=== PATIENT | female | born 1970 | race Two or more races ===

== ENCOUNTER → 2024-05-18 | Outpatient (CLI) | payer MEDICAID ==
[~2024-05-18] VITALS: Ht 152.4 cm; Wt 51.7 kg
[2024-05-18] MEDS: REGADENOSON 0.4 MG/5 ML SYRG IV ONE ×2 (10:41)
== END | disposition home or self-care (01) ==
LOC: XYW 07:35
PROVIDERS: ATTEND Internal Medicine
DX: I99.8 Other disorder of circulatory system (principal); I11.9 Hypertensive heart disease without heart failure; R06.02 Shortness of breath; M06.9 Rheumatoid arthritis, unspecified
CPT/HCPCS: 78452; 93017; A9500; J2785

== ENCOUNTER 2024-12-03 08:49 | Emergency (ER) | payer MEDICAID, OTHER ==
[~2024-12-03] VITALS: Ht 162.6 cm; Wt 58.1 kg
--- NOTE | 2024-12-03 08:56 | ECG ---
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
[2024-12-03 09:10] VITALS: PULSE 71; RESP 18; TEMP 97.9; O2SAT 98
[2024-12-03] MEDS: SODIUM CHLORIDE 0.9% 1,000 ML IV ONE (09:27)
--- NOTE | 2024-12-03 09:32 | ED.PDOC ---
SOB-HPI HPI Comments 54 y/o F, with PMHx of HTN presents to the ED for CC of shortness of breath. Patient states, she has been experiencing symptoms of shortness of breath [id number]. Upon arrival to the ED, patient is hypotensive with a blood pressure reading of 90/54mmHg. Patient denies cough, congestion, fever, chills, or body- aches. No other symptoms or modifying factors present at this time. 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 Family History Family History: Unknown Social History Smoker: Other (VAPE) Alcohol: Denies ETOH Use Drugs: Denies Drug Use Lives In: Home Constitutional: denies: chills, diaphoresis, fatigue, fever, malaise, sweats, weakness, others EENTM: denies: blurred vision, double vision, ear bleeding, ear discharge, ear drainage, ear pain, ear ringing, eye pain, eye redness, hearing loss, mouth pain, mouth swelling, nasal discharge, nose bleeding, nose congestion, nose pain, photophobia, tearing, throat pain, throat swelling, voice changes, others Respiratory: reports: shortness of breath; denies: cough, hemoptysis, orthopnea, SOB at rest, SOB with excertion, stridor, wheezing, others Cardiovascular: denies: chest pain, dizzy spells, diaphoresis, Dyspnea on exertion, edema, irregular heart beat, left arm pain, lightheadedness, palpitations, PND, syncope, others Gastrointestinal: denies: abdomen distended, abdominal pain, blood streaked bowels, constipated, diarrhea, dysphagia, difficulty swallowing, hematemesis, melena, nausea, poor appetite, poor fluid intake, rectal bleeding, rectal pain, vomiting, others Genitourinary: denies: abnormal vagina bleeding, burning, dyspareunia, dysuria, flank pain, frequency, hematuria, incontinence, pain, , vagina discharge, urgency, others Neurological: denies: dizziness, fainting, headache, left sided numbness, left sided weakness, numbness, paresthesia, pre-existing deficit, right sided numbness, right sided weakness, seizure, speech problems, tingling, tremors, weakness, others Musculoskeletal: denies: back pain, gout, joint pain, joint swelling, muscle pain, muscle stiffness, neck pain, others Integumetry: denies: bruises, change in color, change in hair/nails, dryness, laceration, lesions, lumps, rash, wounds, others Allergic/Immunocompromised: denies: Difficulty Healing, Frequent Infections, Hives, Itching, others Hematologic/Lymphatic: denies: anemia, blood clots, easy bleeding, easy bruising, swollen glands, others Endocrine: denies: excessive hunger, excessive sweating, excessive thirst, excessive urination, flushing, intolerance to cold, intolerance to heat, unexplained weight gain, unexplained weight loss, others Psychiatric: denies: anxiety, bipolar disorder, depression, hopeless, panic disorder, schizophrenia, sleepless, suicidal, others All Other Systems: Reviewed and Negative Physical Exam General Appearance: Moderate Distress HEENT: Normal ENT Inspection, Pharynx Normal, TMs Normal Neck: Full Range of Motion, Non-Tender, Normal, Normal Inspection Respiratory: Other (Coarse breath sounds) Cardiovascular: No Edema, No JVD, No Murmur, No Gallop, Normal Peripheral Pulses, Regular Rate/Rhythm Breast Exam: Deferred Gastrointestinal: No Organomegaly, Non Tender, No Pulsatile Mass, Normal Bowel Sounds, Soft Genitalia: Deferred Pelvic: Deferred Rectal: Deferred Extremities: No calf tenderness, Normal capillary refill, Normal inspection, Normal range of motion, Non-tender, No pedal edema Musculoskeletal : Apperance: Normal 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 Was a procedure done?: No Differential Dx Differential Diagnosis: Asthma, Bronchitis, Hypertension, Sinusitis, Pharyngitis, URI X-Ray, Labs, Meds, VS Vital Signs Date Time Temp Pulse Resp B/P (MAP) Pulse Ox O2 Delivery O2 Flow Rate FiO2 12/03/24 10:21 60 16 104/74 (84) 96 12/03/24 09:12 16 96 Room Air* 0 21 12/03/24 09:10 71 18 98 Room Air* 0 21 12/03/24 09:10 97.9 71 18 89/62 (71) 98 97.9 12/03/24 09:09 97.8 71 16 90/54 (66) 96 97.8 12/03/24 08:55 65 Lab Test 12/03/24 09:48 12/03/24 09:40 12/03/24 08:58 Range/Units Troponin I High Sensitivity 19 22 </=34 ng/L Urine Color Colorless Yellow Urine Clarity Clear Clear Urine pH 6.0 5.0-9.0 Urine Specific [place] 1.006 1.001-1.035 Urine Protein Negative Negative Urine Ketones Negative Negative Urine Blood 2+ H Negative /uL Urine Nitrite Negative Negative Urine Bilirubin Negative Negative Urine Urobilinogen Normal Negative mg/dL Urine Leukocyte Esterase 3+ Negative /uL Urine RBC 20 0 - 4 /hpf Urine Microscopic WBC 46 H 0-5 /HPF Urine Squamous Epithelial Cells Few <5 /hpf Urine Bacteria Few H None Seen /hpf Urine Glucose Normal Normal mg/dL White Blood Count 7.4 4.4-10.8 10^3/uL Red Blood Count 4.58 4.0-5.20 10^6/uL Hemoglobin 14.7 12.2-16.2 g/dL Hematocrit 43.2 36.0-46.0 % Mean Corpuscular Volume 94.4 80.0-100.0 fL Mean Corpuscular Hemoglobin 32.0 28.0-32.0 pg Mean Corpuscular Hemoglobin Concent 33.9 32.0-36.0 g/dL Red Cell Distribution Width 14.5 H 11.8-14.3 % Platelet Count 163 140-450 10^3/uL Mean Platelet Volume 8.0 6.9-10.8 fL Neutrophils (%) (Auto) 67.7 37.0-80.0 % Lymphocytes (%) (Auto) 20.3 10.0-50.0 % Monocytes (%) (Auto) 8.9 0.0-12.0 % Eosinophils (%) (Auto) 2.3 0.0-7.0 % Basophils (%) (Auto) 0.8 0.0-2.0 % Neutrophils # (Auto) 5.0 1.6-8.6 10 ^3/uL Lymphocytes # (Auto) 1.5 0.4-5.4 10 ^3/uL Monocytes # (Auto) 0.7 0-1.3 10 ^3/uL Eosinophils # (Auto) 0.2 0-0.8 10 ^3/uL Basophils # (Auto) 0.1 0-0.2 10 ^3/uL Nucleated Red Blood Cells 0.0 % Sodium Level 143 136-145 mmol/L Potassium Level 3.2 L 3.5-5.1 mmol/L Chloride Level 109 H 98-107 mmol/L Carbon Dioxide Level 23 20-31 mmol/L Anion Gap 11 5-15 Blood Urea Nitrogen 31 H 9-23 mg/dL Creatinine 1.28 H 0.550-1.02 mg/dL Glomerular Filtration Rate Calc 49 >90 mL/min BUN/Creatinine Ratio 24.2 H 10.0-20.0 Serum Glucose 122 H 74-106 mg/dL Calcium Level 9.2 8.7-10.4 mg/dL B-Type Natriuretic Peptide 1220.60 0-100 pg/mL Current Medications Medications (Trade) Dose Ordered Sig/Hunter Route Start Time Stop Time Status Last Admin Sodium Chloride 1,000 ml @ 1,000 mls/hr Q1H ONCE IV 12/03/24 09:30 12/03/24 10:29 DC 12/03/24 09:27 [place] [id number] Ph: [phone] DIAGNOSTIC IMAGING Diagnostic Imaging Report : [id number] Signed PATIENT: JAIR PARR ACCT: [id number] UNIT: [id number] : 1970 LOC: ER ROOM / BED: / AGE / SEX: 54 / F ADM STATUS: REG ER SERVICE 4 ORDERING PHYSICIAN: WILLIE RYDER MD PROCEDURE(s): CXRP - CHEST PORTABLE REASON: sob ORDER NUMBER(s): [id number], ACCESSION NUMBER(s): [id number] CHEST RADIOGRAPH Indication: sob Technique: Single frontal view of the chest was obtained COMPARISON: None FINDINGS: Lines and Tubes: None Lungs: Clear Pleura: No effusion. No pneumothorax. Cardiomediastinal contours: Unremarkable Bones: Unremarkable IMPRESSION: No acute disease. ATED BY: JOEL EDMONDS MD DICTATED DATE/TIME: 12/03/24 1018 SIGNED BY: JOEL EDMONDS MD SIGNED DATE/TIME: 12/03/24 1018 CC: Patient alert. Came in for shortness a breath. She vapes. Rheumatoid arthritis. Does not take care of herself. COPD. Wanted the patient to be admitted. Left without telling anyone. Time of 1ST Reevaluation: 09:40 Reevaluation 1ST: Unchanged Patient Education/Counseling: Diagnosis, Treatment Family Education/Counseling: No Family Present Departure 1 Departure Time of Disposition: 17:45 Impression: Primary Impression: Acute exacerbation of CHF (congestive heart failure) Qualified Codes: I50.43 - Acute on chronic combined systolic (congestive) and diastolic (congestive) heart failure Additional Impression: COPD exacerbation Disposition: ADMITTED INPATIENT Admit to: Med Surg Condition: Guarded Critical Care Note Critical Care Time?: Yes (90 min-critical care time only) Critical care comment: Continue to monitor Stability Stability form required: No Heart Score Heart Score: Heart Score Response (Comments) Value History N/A 0 EKG N/A 0 Age N/A 0 Risk Factors N/A 0 Troponin N/A 0 Total 0 I personally scribed for WILLIE RYDER MD ([email or web address]) on 12/03/24 at 09:32. Electronically submitted by Pretty Smith ([email or web address]). I personally scribed for WILLIE RYDER MD ([email or web address]) on 12/03/24 at 10:36. Electronically submitted by Pretty Smith ([email or web address]). WILLIE RYDER MD December 03, 2024 09:32
[2024-12-03 09:38] LABS: Basophils # (auto) 0.1 10 ^3/uL (0-0.2); Basophils % (auto) 0.8 % (0.0-2.0); Eosinophils # (auto) 0.2 10 ^3/uL (0-0.8); Eosinophils % (auto) 2.3 % (0.0-7.0); Hematocrit 43.2 % (36.0-46.0); Hemoglobin 14.7 g/dL (12.2-16.2); Lymphocytes # (auto) 1.5 10 ^3/uL (0.4-5.4); Lymphocytes % (auto) 20.3 % (10.0-50.0); Mean Corpuscular Hgb Conc. 33.9 g/dL (32.0-36.0); Mean Corpuscular Volume 94.4 fL (80.0-100.0); Monocytes # (auto) 0.7 10 ^3/uL (0-1.3); Monocytes % (auto) 8.9 % (0.0-12.0); Neutrophils % (auto) 67.7 % (37.0-80.0); Platelet Count (auto) 163 10^3/uL (140-450); Red Blood Cells 4.58 10^6/uL (4.0-5.20); Red Cell Distribution Width 14.5 % (11.8-14.3); White Blood Cell 7.4 10^3/uL (4.4-10.8)
[2024-12-03 09:48] LABS: Sodium 143 mmol/L (136-145)
[2024-12-03 09:49] LABS: Anion Gap 11 (5-15); Carbon Dioxide 23 mmol/L (20-31); Chloride 109 mmol/L (98-107); Potassium 3.2 mmol/L (3.5-5.1)
[2024-12-03 09:50] LABS: Calcium 9.2 mg/dL (8.7-10.4)
[2024-12-03 09:54] LABS: BUN/Creatinine Ratio 24.2 (10.0-20.0)
[2024-12-03 09:57] LABS: Blood Urea Nitrogen 31 mg/dL (9-23); Glucose 122 mg/dL (74-106)
[2024-12-03 09:58] LABS: Urine Bacteria FEW /hpf (None Seen); Urine Blood 2+ /uL (Negative); Urine Clarity Clear (Clear); Urine Color Colorless (Yellow); Urine Protein, UAD Negative (Negative); Urine Specific Gravity 1.006 (1.001-1.035); Urine Squamous Epithelial Cell FEW /hpf (<5); Urine Urobilinogen Normal (Negative); Urine WBC 46 /HPF (0-5)
--- NOTE | 2024-12-03 10:20 | DVH ---
CHEST RADIOGRAPH Indication: sob Technique: Single frontal view of the chest was obtained COMPARISON: None FINDINGS: Lines and Tubes: None Lungs: Clear Pleura: No effusion. No pneumothorax. Cardiomediastinal contours: Unremarkable Bones: Unremarkable IMPRESSION: No acute disease.
[2024-12-03 10:21] VITALS: BP 104/74; PULSE 60; RESP 16; O2SAT 96
--- NOTE | 2024-12-03 16:43 | ECG ---
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
[2024-12-04] MEDS ORDERED: LOSA-533 PO (00:37)
[2024-12-04] MEDS ORDERED: ASPI-543 PO (00:37)
[2024-12-04] MEDS ORDERED: FURO40TA4 PO (00:37)
[2024-12-04] MEDS ORDERED: CARV6.2551 PO (00:37)
== END 2024-12-03 10:56 | disposition left against medical advice (07) ==
LOC: ER 08:49
DX: I11.0 Hypertensive heart disease with heart failure (principal); I50.9 Heart failure, unspecified; J44.1 Chronic obstructive pulmonary disease with (acute) exacerbation; F17.290 Nicotine dependence, other tobacco product, uncomplicated; Z98.890 Other specified postprocedural states
CPT/HCPCS: 36415; 71045; 80048; 81001; 83880; 84484; 85025; 93005; 96360; 99291; 99292; J7030

== ENCOUNTER 2024-12-03 16:34 | Inpatient (IN) | payer MEDICAID ==
[~2024-12-03] VITALS: Ht 152.4 cm; Wt 58.2 kg
--- NOTE | 2024-12-03 16:53 | ED.PDOC ---
SOB-HPI HPI Comments 54 y/o F, presents to the ED for CC of shortness of breath. Patient states, she has been experiencing shortness of breath xmonths. Patient was seen at [facility] ED earlier today (12/03/24); left AMA. Patient denies any new symptoms since, last being seen. 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 [employer] Hx Family History Family History: Unknown Social History Smoker: Other (vapes) Alcohol: Denies ETOH Use Drugs: Denies Drug Use Lives In: Home Constitutional: denies: chills, diaphoresis, fatigue, fever, malaise, sweats, weakness, others EENTM: denies: blurred vision, double vision, ear bleeding, ear discharge, ear drainage, ear pain, ear ringing, eye pain, eye redness, hearing loss, mouth pain, mouth swelling, nasal discharge, nose bleeding, nose congestion, nose pain, photophobia, tearing, throat pain, throat swelling, voice changes, others Respiratory: reports: shortness of breath; denies: cough, hemoptysis, orthopnea, SOB at rest, SOB with excertion, stridor, wheezing, others Cardiovascular: denies: chest pain, dizzy spells, diaphoresis, Dyspnea on exertion, edema, irregular heart beat, left arm pain, lightheadedness, palpitations, PND, syncope, others Gastrointestinal: denies: abdomen distended, abdominal pain, blood streaked bowels, constipated, diarrhea, dysphagia, difficulty swallowing, hematemesis, melena, nausea, poor appetite, poor fluid intake, rectal bleeding, rectal pain, vomiting, others Genitourinary: denies: abnormal vagina bleeding, burning, dyspareunia, dysuria, flank pain, frequency, hematuria, incontinence, pain, , vagina discharge, urgency, others Neurological: denies: dizziness, fainting, headache, left sided numbness, left sided weakness, numbness, paresthesia, pre-existing deficit, right sided numbness, right sided weakness, seizure, speech problems, tingling, tremors, weakness, others Musculoskeletal: denies: back pain, gout, joint pain, joint swelling, muscle pain, muscle stiffness, neck pain, others Integumetry: denies: bruises, change in color, change in hair/nails, dryness, laceration, lesions, lumps, rash, wounds, others Allergic/Immunocompromised: denies: Difficulty Healing, Frequent Infections, Hives, Itching, others Hematologic/Lymphatic: denies: anemia, blood clots, easy bleeding, easy bruising, swollen glands, others Endocrine: denies: excessive hunger, excessive sweating, excessive thirst, excessive urination, flushing, intolerance to cold, intolerance to heat, unexplained weight gain, unexplained weight loss, others Psychiatric: denies: anxiety, bipolar disorder, depression, hopeless, panic disorder, schizophrenia, sleepless, suicidal, others All Other Systems: Reviewed and Negative Physical Exam General Appearance: Moderate Distress (Patient appear to be in [id number] distress due to shortness a breath and general illness concerns. Patient ap pears to be in poor overall health and older than her chronology.), Normal HEENT: Normal ENT Inspection, Pharynx Normal, TMs Normal Neck: Full Range of Motion, Non-Tender, Normal, Normal Inspection Respiratory: Chest Non-Tender, No Accessory Muscle Use, No Respiratory Distress, Other (Very mild wheeze appreciated right middle lobe. No accessory muscle use. No signs of respiratory distress.) Cardiovascular: No Edema, No JVD, No Murmur, No Gallop, Normal Peripheral Pulses, Regular Rate/Rhythm Breast Exam: Deferred Gastrointestinal: No Organomegaly, Non Tender, No Pulsatile Mass, Normal Bowel Sounds, Soft Genitalia: Deferred Pelvic: Deferred Rectal: Deferred Extremities: No calf tenderness, Normal capillary refill, Normal inspection, Normal range of motion, Non-tender, No pedal edema Neurologic: Alert, No Motor Deficits, Normal Affect, Normal Mood, No Sensory Deficits Cerebellar Function: Normal Reflexes: Normal Skin: Dry, Normal Color, Warm Lymphatic: No Adenopathy Was a procedure done? Was a procedure done?: No Differential Dx Differential Diagnosis: Bronchitis, CHF, Pneumonia, Sinusitis, Pharyngitis, URI X-Ray, Labs, Meds, VS Vital Signs Date Time Temp Pulse Resp B/P (MAP) Pulse Ox O2 Delivery O2 Flow Rate FiO2 12/03/24 16:40 98.4 79 16 130/85 (100) 97 98.4 Lab Test 12/03/24 16:54 Range/Units Troponin I High Sensitivity Pending X-Ray, Labs, Meds, VS Comment All studies performed the ED were evaluated by me personally. Earlier serum studies confirmed an acute CHF exacerbation with a BNP above 1200, acute on chronic renal injury, hypokalemia and a urinary tract infection. EKG revealed a sinus rhythm with a rate of 73. IL interval 197 and QT interval 408. LAE and RVH was appreciated. Patient's chest x-ray was unremarkable for any acute disease. Patient is suffering from a significant CHF exacerbation and needs evaluation of kidney function. Patient will be admitted for both. Discussed the need for admission with the patient and she stated that she wants to be admitted now. Time of 1ST Reevaluation: 17:12 Reevaluation 1ST: Unchanged Consultation: PCP Patient Education/Counseling: Diagnosis, Treatment Family Education/Counseling: Diagnosis, Treatment, No Family Present Departure 1 Departure Time of Disposition: 17:12 Impression: Primary Impression: Acute exacerbation of CHF (congestive heart failure) Qualified Codes: I50.43 - Acute on chronic combined systolic (congestive) and diastolic (congestive) heart failure Additional Impressions: [id number] kidney injury Qualified Codes: N17.9 - Acute kidney failure, unspecified; N18.9 - Chronic kidney disease, unspecified Hypokalemia Urinary tract infection Qualified Codes: N39.0 - Urinary tract infection, site not specified Disposition: 09 ADMITTED INPATIENT Condition: Stable Discharged With: Self Critical Care Note Critical Care Time?: No Stability Stability form required: No Heart Score Heart Score: Heart Score Response (Comments) Value History Slightly Suspicious 0 EKG Repolarization Disturb 1 Age 45-64 1 Risk Factors 1 or 2 risk factors 1 Troponin Normal limit 0 Total 3 I personally scribed for SEVERIANO ESCALONA PAC ([email or web address]) on 12/03/24 at 16:53. Electronically submitted by Pretty Smith ([email or web address]). I personally scribed for SEVERIANO ESCALONA PAC ([email or web address]) on 5/9/25 at 17:00. Electronically submitted by Pretty Smith ([email or web address]). SEVERIANO ESCALONA [facility] December 03, 2024 16:53 WILLIE RYDER MD December 03, 2024 17:27
[2024-12-03] MEDS ORDERED: MORPHINE SULFATE INJ 2 MG/ml SYRG IV PRN (21:00)
[2024-12-03] MEDS ORDERED: NITROGLYCERIN 0.4 MG SL TAB SL PRN (21:00)
[2024-12-03] MEDS ORDERED: ACETAMINOPHEN 325 MG TAB PO PRN (21:00)
[2024-12-03] MEDS: POTASSIUM EFFERVESENT TAB 25 MEQ PO ONE (21:01)
[2024-12-03] MEDS: cefTRIAXone 1GM/50ML D5W 50 ML IV ONE (21:05)
[2024-12-03] MEDS: FUROSEMIDE 40 MG/4 ML VIAL IV ONE (21:05)
[2024-12-03] MEDS: CARVEDILOL 3.125 MG TAB PO ONE (21:26)
[2024-12-03 21:32] LABS: Albumin 4.3 g/dL (3.2-4.8); Anion Gap 12 (5-15); BUN/Creatinine Ratio 20.1 (10.0-20.0); Calcium 8.7 mg/dL (8.7-10.4); Carbon Dioxide 27 mmol/L (20-31); Chloride 106 mmol/L (98-107); Glucose 87 mg/dL (74-106); Potassium 4.5 mmol/L (3.5-5.1); Sodium 145 mmol/L (136-145); Total Protein 7.1 g/dL (5.7-8.2)
[2024-12-03 21:33] LABS: Bilirubin, Total 0.7 mg/dL (0.2-1.0)
[2024-12-03 21:41] LABS: Alanine Aminotransferase 69 U/L (7-40); Alkaline Phosphatase 136 U/L (46-116); Aspartate Aminotransferase 56 U/L (13-40); Blood Urea Nitrogen 27 mg/dL (9-23)
[2024-12-03] MEDS: SACUBITRIL-VALSARTAN 24mg/26mg TAB PO SCH (22:18)
[2024-12-03 22:40] VITALS: BP 123/82; PULSE 72; RESP 17; TEMP 97.2; O2SAT 93
[2024-12-03 22:47] VITALS: BP 123/82; PULSE 72; PULSE 75; RESP 17; RESP 18; O2SAT 91
[2024-12-04] VITALS (11 sets, daily range): BP systolic 96–116; BP diastolic 54–82; PULSE 41–78; RESP 16–20; TEMP 97.3–98.5; O2SAT 95–100
[2024-12-04] MEDS ORDERED: FURO40TA4 PO (00:37)
[2024-12-04] MEDS ORDERED: ASPI-543 PO (00:37)
[2024-12-04] MEDS ORDERED: CARV6.2551 PO (00:37)
[2024-12-04] MEDS ORDERED: LOSA-533 PO (00:37)
--- NOTE | 2024-12-04 04:23 | DVHHP2 ---
History of Present Illness Reason for Visit: acute HF History of Present Illness 54-year-old female with past medical history of chronic HFrEF, ischemic cardiomyopathy s/p recent CAD stenting (unknown coronary anatomy), HTN and rheumatoid arthritis on biologic therapy (Etanercept), presents to the ED for evaluation of progressively worsening shortness of breath over the past month and leg edema. She reports associated symptoms including cough, congestion, intermittent low-grade fever, and generalized malaise. She was previously evaluated at [facility] ED earlier today and left AMA. She denies chest pain. No recent travel, sick contacts, or changes in medications. She has a known history of reduced EF (38%) and underwent a r nuclear stress test in June 2024 which showed anteroseptal ischemia and moderately to severely reduced LV function with a dilated LV. She is followed by Dr. Soliman from [place] (cardiology) and is unsure of her current anatomy or stent details. Past Medical History: Heart failure with reduced ejection fraction (EF 38%) Ischemic cardiomyopathy Hypertension Recent CAD s/p stenting (unknown location) Rheumatoid arthritis on biologic therapy (etanercept/Enbrel) Surgical History: REGULATORY MANAGER History: Denies REGULATORY MANAGER issues Home Medications: Aspirin 81 mg daily Carvedilol 6.25 mg BID Furosemide 40 mg daily Losartan 25 mg daily Allergies: No known drug allergies Family History: Unknown Social History: Smoker:Vapes Alcohol: Denies Drugs: Denies Lives at home Review of Systems: Complete ROS reviewed and negative except as noted in HPI. Review of Systems Allergies: Coded Allergies: NO KNOWN ALLERGIES (Unverified , 05/18/24) Medications Current Medications Medications Dose Ordered Sig/Hunter Route Start Time Stop Time Status Last Admin Dose Admin Acetaminophen 650 mg Q6HP PRN PO 12/03/24 21:00 Acetaminophen/ Hydrocodone Bitart 1 tab Q4HP PRN PO 12/03/24 21:00 Enoxaparin Sodium 40 mg DAILY SC 12/04/24 10:00 Nitroglycerin 0.4 mg Q5MINP PRN SL 12/03/24 21:00 Morphine Sulfate 2 mg Q30M PRN IV 12/03/24 21:00 Clopidogrel Bisulfate 75 mg DAILY PO 12/04/24 10:00 Aspirin 81 mg DAILY PO 12/04/24 10:00 Sacubitril/ Valsartan 2 tab BID PO 12/03/24 22:00 12/03/24 22:18 2 TAB Furosemide 40 mg BIDD IV 12/04/24 06:00 Empaglifozin 10 mg DAILY PO 12/04/24 10:00 Spironolactone 50 mg DAILY PO 12/04/24 10:00 Exam Vital Signs Vital Signs Date Time Temp Pulse Resp B/P (MAP) Pulse Ox O2 Delivery O2 Flow Rate FiO2 12/04/24 01:00 97.3 75 18 107/82 (90) 99 97.3 12/03/24 22:47 Room Air* 0 21 Exam General: Mild to moderate distress secondary to SOB, appears older than stated age. HEENT: Normocephalic, atraumatic, TM's normal, no sinus tenderness Neck: Supple, no JVD, no lymphadenopathy Cardiovascular: Regular rhythm, no murmurs, rubs, or gallops. Respiratory: Mild respiratory distress, diminished breath sounds at bases, no wheezing GI: Soft, nontender, no organomegaly Neuro: Alert and oriented x4, no focal deficits Extremities: edema 2+ Skin: No rashes or lesions Labs/Xrays Labs Test 12/03/24 19:43 Range/Units Sodium Level 145 136-145 mmol/L Potassium Level 4.5 3.5-5.1 mmol/L Chloride Level 106 98-107 mmol/L Carbon Dioxide Level 27 20-31 mmol/L Anion Gap 12 5-15 Blood Urea Nitrogen 27 H 9-23 mg/dL Creatinine 1.34 H 0.550-1.02 mg/dL Glomerular Filtration Rate Calc 47 >90 mL/min BUN/Creatinine Ratio 20.1 H 10.0-20.0 Serum Glucose 87 74-106 mg/dL Calcium Level 8.7 8.7-10.4 mg/dL Total Bilirubin 0.7 0.2-1.0 mg/dL Aspartate Amino Transferase (AST) 56 H 13-40 U/L Alanine Aminotransferase (ALT) 69 H 7-40 U/L Alkaline Phosphatase 136 H 46-116 U/L Troponin I High Sensitivity 22 </=34 ng/L Total Protein 7.1 5.7-8.2 g/dL Albumin 4.3 3.2-4.8 g/dL Assessment/Plan Assessment/Plan #Acute exacerbation of on chronic HFrEF #Ischemic cardiomyopathy #recent CAD sp stent #Hypertensive heart disease with systolic dysfunction #Rheumatoid arthritis on biologic treatment #JERONIMO due to VMN, possible CKD (unknown creatinine) #Transaminitis #Possible UTI Admit Medsurg Cardiac diet Aspirin Clopidogrel Hold on entresto due to JERONIMO Spironolactone Ceftriaxone IV Hold on jardiance due to UTI Carvedilol Furosemide IV Pending new ECHO Cardiology consult Dr Soliman Case discussed with Dr Sutherland Full code Plan discussed with: Patient, Other (rn) My Orders Orders - ANITA MENDIETA RESIDENT Procedure Category Date Status Time Admit ADMIT 12/03/24 Transmitted 20:56 Code Status CODE 12/03/24 Transmitted 20:56 Vital Signs EMMA 12/03/24 In Process 20:56 Review Orders With EMMA 12/03/24 In Process Adm. 20:56 Consistent DIET 12/04/24 Transmitted Carb(Ccho)Diabetes Breakfast Acetaminophen Tablet PHA 12/03/24 In Process (Tylenol Tablet) 21:00 Notify Of Changes EMMA 12/03/24 In Process From Base 20:56 Advance Directive EMMA 12/03/24 In Process 20:56 Echo 2d Mode Cardiac US 12/03/24 Logged DOP 20:56 Patient Condition ORDERS 12/03/24 Transmitted 20:56 Allergies EMMA 12/03/24 In Process 20:56 Hydrocodone-Acet PHA 12/03/24 In Process 5/325mg Tab (Latta 21:00 Drug Screen LAB 12/03/24 Logged 20:56 Enoxaparin Sodium PHA 12/04/24 In Process (Lovenox) 10:00 Nitroglycerin PHA 12/03/24 In Process Sublingual (Ntrostat 21:00 Morphine Sulfate PHA 12/03/24 In Process Injection 21:00 Oxygen By Nasal RT 12/03/24 Transmitted Cannula 20:56 Stat Ekg For Chest EMMA 12/03/24 In Process Pain 20:56 Notify Of Changes EMMA 12/03/24 In Process From Base 20:56 Director Talent Management For EMMA 12/03/24 In Process 24 Hours 20:56 Emergency Dysrhythmia EMMA 12/03/24 In Process Protocol 20:56 Rhythm Strips Once EMMA 12/03/24 In Process Every Shift 20:56 Clopidogrel Bisulfate PHA 12/04/24 In Process (Plavix) 10:00 Aspirin Tablet PHA 12/04/24 In Process 10:00 Sacubitril-Valsartan PHA 12/03/24 In Process (Entresto 24-26 Mg 22:00 Furosemide Injection PHA 12/04/24 In Process (Lasix Injection) 06:00 Spironolactone PHA 12/04/24 In Process (Aldactone) 10:00 *Consult Dr[address] Soliman CONS 12/03/24 Transmitted 21:49 Complete Blood Count LAB 12/04/24 Logged 02:51 Comprehensive LAB 12/04/24 Logged Metabolic Panel 02:51 Thyroid Stimulating LAB 12/04/24 Logged Hormone 02:51 Hemoglobin A1c LAB 12/04/24 Logged 02:51 Urinalysis LAB 12/04/24 Logged 02:51 Drug Screen LAB 12/04/24 Logged 02:51 Ceftriaxone 1gm/50ml PHA 12/04/24 Logged D5w (Rocephin) 09:00 Date of Service: December 03, 2024 Billing Provider: ZULEIMA SUTHERLAND MD Common Visit Codes: 28466-[id number] INP/OBS CARE (HIGH) Secondary Visit Codes: 87557-[id number] CARE PLAN 30 MINUTES ANITA MENDIETA RESIDENT December 04, 2024 04:22
[2024-12-04 04:49] LABS: Basophils # (auto) 0.1 10 ^3/uL (0-0.2); Basophils % (auto) 0.7 % (0.0-2.0); Eosinophils # (auto) 0.1 10 ^3/uL (0-0.8); Eosinophils % (auto) 1.9 % (0.0-7.0); Hematocrit 43.2 % (36.0-46.0); Hemoglobin 14.8 g/dL (12.2-16.2); Lymphocytes # (auto) 1.7 10 ^3/uL (0.4-5.4); Lymphocytes % (auto) 21.7 % (10.0-50.0); Mean Corpuscular Hgb Conc. 34.3 g/dL (32.0-36.0); Mean Corpuscular Volume 93.3 fL (80.0-100.0); Monocytes # (auto) 0.9 10 ^3/uL (0-1.3); Neutrophils % (auto) 63.7 % (37.0-80.0); Platelet Count (auto) 170 10^3/uL (140-450); Red Blood Cells 4.63 10^6/uL (4.0-5.20); Red Cell Distribution Width 14.5 % (11.8-14.3); White Blood Cell 7.9 10^3/uL (4.4-10.8)
[2024-12-04 05:05] LABS: Albumin 3.9 g/dL (3.2-4.8); Anion Gap 10 (5-15); BUN/Creatinine Ratio 18.3 (10.0-20.0); Calcium 9.3 mg/dL (8.7-10.4); Carbon Dioxide 27 mmol/L (20-31); Chloride 106 mmol/L (98-107); Glucose 92 mg/dL (74-106); Potassium 3.7 mmol/L (3.5-5.1); Sodium 143 mmol/L (136-145)
[2024-12-04 05:06] LABS: Bilirubin, Total 0.6 mg/dL (0.2-1.0)
[2024-12-04 05:14] LABS: Alanine Aminotransferase 62 U/L (7-40); Alkaline Phosphatase 130 U/L (46-116); Aspartate Aminotransferase 49 U/L (13-40); Blood Urea Nitrogen 24 mg/dL (9-23)
[2024-12-04] MEDS: FUROSEMIDE 40 MG/4 ML VIAL IV SCH (05:43)
[2024-12-04] MEDS ORDERED: ALBUTEROL SULF HFA 90MCG INH 200DOSE IN PRN (09:30)
[2024-12-04] MEDS: ASPirin 81 mg TAB PO SCH (09:51)
[2024-12-04] MEDS: SPIRONOLACTONE 25 MG TAB PO SCH (09:51)
[2024-12-04] MEDS: cefTRIAXone 1GM/50ML D5W 50 ML IV SCH (09:51)
[2024-12-04] MEDS: ENOXAPARIN SOD 40 MG/0.4 ML SYRINGE SC SCH (09:51)
[2024-12-04] MEDS: CLOPIDOGREL BISULFATE 75 MG TAB PO SCH (09:52)
[2024-12-04] MEDS: CARVEDILOL 3.125 MG TAB PO SCH (09:53)
[2024-12-04] MEDS ORDERED: EMPAGLIFLOZIN 10 MG TAB PO SCH (10:00)
[2024-12-04] MEDS ORDERED: ALBUTEROL SULF 2.5 MG/0.5ML(0.5%) NEB SOLN NEB PRN (10:15)
--- NOTE | 2024-12-04 12:33 | DVH ---
EXAM: US Abdomen Limited, Right Upper Quadrant CLINICAL INDICATION: elevated liver function TECHNIQUE: Real-time ultrasound of the right upper quadrant with image documentation. COMPARISON: None FINDINGS: LIVER: Liver measures up to 12.96 cm. No intrahepatic bile duct dilation. GALLBLADDER: Negative Gutierrez's sign was reported by the motor vehicle parts interpreter. No gallstones. COMMON BILE DUCT: Unremarkable as visualized. No stones. No dilation. Common bile duct measures 0.41 cm in diameter. PANCREAS: Unremarkable as visualized. RIGHT KIDNEY: Right kidney measures up to 8.8 cm. No stones. No hydronephrosis. OTHER FINDINGS: . . IMPRESSION: No acute findings in the right upper quadrant.
--- NOTE | 2024-12-04 15:39 | DVHPNRES ---
Progress Note Date Seen: December 04, 2024 Resident Creating Document: JACKY KELSEY RESIDENT Medical Necessity Reason Pt with a Central, PICC or Fol: No Subjective Review of Systems History of Present Illness 54-year-old female with past medical history of chronic HFrEF, ischemic cardiomyopathy s/p recent CAD stenting (unknown coronary anatomy), HTN and rheumatoid arthritis on biologic therapy (Etanercept), presents to the ED for evaluation of progressively worsening shortness of breath over the past month and leg edema. She reports associated symptoms including cough, congestion, intermittent low-grade fever, and generalized malaise. She was previously evaluated at [facility] ED earlier today and left AMA. She denies chest pain. No recent travel, sick contacts, or changes in medications. She has a known history of reduced EF (38%) and underwent a r nuclear stress test in June 2024 which showed anteroseptal ischemia and moderately to severely reduced LV function with a dilated LV. She is followed by Dr. Coronel from [place] (cardiology) and is unsure of her current anatomy or stent details. Past Medical History:Heart failure with reduced ejection fraction (EF 38%), Ischemic cardiomyopathy, Hypertension, Recent CAD s/p stenting by bañuelos, Rheumatoid arthritis on biologic therapy (etanercept/Enbrel), History Meth abuse(at least five years) Home medication: Aspirin, clopidogrel, Coreg, Entresto, Lasix. Personal history: Patient endorsing use of methamphetamine in passed stone. At least for five years Patient seen and examined at bedside. Complaining home bilateral lower extremity swelling, shortness of breath with exertion, shortness of breath with lying down mainly in nighttime. Denied fever, chills, cough, sputum production, chest pain, any other symptoms at this point Objective vital signs Vital Sign Date Time Temp Pulse Resp B/P (MAP) Pulse Ox O2 Delivery O2 Flow Rate FiO2 12/04/24 13:00 98.0 69 18 96/65 (75) 97 98.0 12/04/24 11:13 Room Air 0.0 12/04/24 11:13 21 Total Intake and Output 12/03/24 12/03/24 12/04/24 15:00 23:00 07:00 Intake Total 50 ml 800 ml Balance 50 ml 800 ml medications Current Medications Medications Dose Ordered Sig/Hunter Route Start Time Stop Time Status Last Admin Dose Admin Acetaminophen 650 mg Q6HP PRN PO 5/9/25 21:00 Acetaminophen/ Hydrocodone Bitart 1 tab Q4HP PRN PO 12/03/24 21:00 Enoxaparin Sodium 40 mg DAILY SC 12/04/24 10:00 12/04/24 09:51 40 MG Nitroglycerin 0.4 mg Q5MINP PRN SL 12/03/24 21:00 Morphine Sulfate 2 mg Q30M PRN IV 12/03/24 21:00 Clopidogrel Bisulfate 75 mg DAILY PO 12/04/24 10:00 12/04/24 09:52 75 MG Aspirin 81 mg DAILY PO 12/04/24 10:00 12/04/24 09:51 81 MG Furosemide 40 mg BIDD IV 12/04/24 06:00 12/04/24 06:06 40 MG Spironolactone 50 mg DAILY PO 12/04/24 10:00 12/04/24 09:51 50 MG Ceftriaxone Sodium 50 ml @ 100 mls/hr DAILY@09 IV 12/04/24 09:00 12/04/24 09:51 100 MLS/HR Carvedilol 6.25 mg Q12HR PO 12/04/24 10:00 12/04/24 09:53 6.25 MG Albuterol 90 mcg TID PRN IN 12/04/24 09:30 UNV Albuterol 2.5 mg Q4HPRN PRN NEB 12/04/24 10:15 Examination General Appearance: Cooperative. Well developed. Well nourished. NAD Head Exam: Normal inspection Neck Exam: Normal inspection. Non-tender. Normal alignment Pulmonary/Respiratory: Chest non-tender. Clear bilateral breath sounds Cardiovascular/Chest: Regular rate and rhythm. No murmurs. No JVD. Peripheral Pulses: 2+ Radial (R). 2+ Radial (L). 2+ Pedal (R). 2+ Pedal (L) Abdominal Exam: Normal bowel sounds. Soft. Nontender. No hepatospenomegaly. No masses Ankle Exam: Negative ankle edema Lower extremities: 2+ bilateral lower extremity edema, capillary refill less than 2nd, presence of pedal +. No skin break Neuro/Mental Status: A&O x4. Coherent Thoughts/Psych: Normal thought pattern. Appropriate mood and affect. Good judgement and insight Appearance: In no acute distress Skin Exam: Normal inspection. Normal color. Warm. Dry laboratory and microbiology Laboratory Tests 12/04/24 04:06 12/04/24 04:03 Test 12/04/24 04:03 Range/Units Serum Glucose 92 74-106 mg/dL Problem List/Assessment/Plan Problem List/Assessment/Plan Hypertensive heart disease with acute on chronic HFrEF Ischemic cardiomyopathy recent CAD sp stent in june [address] coronel Rheumatoid arthritis on biologic treatment JERONIMO due to VMN, possible CKD (unknown creatinine) Transaminitis Diabetes mellitus type 2 HGB A1c 6.7 Possible UTI Plan/ recommendation -continue aspirin 81 mg p.o. daily, clopidogrel 75 mg p.o. daily for secondary prevention after PCI intervention done recently June -echocardiogram pending, history of HFrEF, optimize GDM . Cardiology consultation with -continue Lasix 40 mg IV b.i.d., monitor urine output, strict I&O, cardiac diet, monitor electrolyte including potassium and magnesium -hold blood pressure medication including Entresto given JERONIMO and soft blood pressure -continue spironolactone 50 mg p.o. daily -urine analysis and UDS pending, IV antibiotic given for possible UTI -newly diagnosed diabetes mellitus, no hyperglycemia at this point. Continue atorvastatin 40 mg p.o. daily. -hold Jardiance given possible UTI -DVT prophylaxis with Lovenox 40 mg subQ daily Goals of care discussed greater than 24 minutes, full code status Plan discussed with Plan discussed with: Patient, Other (RN) My Orders My Orders Orders - JACKY KELSEY Procedure Category Date Status Time LIVER US 12/04/24 Resulted 08:49 Cardiac DIET 12/04/24 Transmitted Diet-2gna,Lofat,Lochol Breakfast Albuterol Medneb PHA 12/04/24 In Process (Ventolin Medneb) 10:15 Date of Service: December 04, 2024 Billing Provider: AVELINA LAURA MD Common Visit Codes: [id number] INP/OBS CARE(HIGH) JACKY KELSEY December 04, 2024 15:39 AVELINA LAURA MD December 06, 2024 14:01
[2024-12-04 16:02] LABS: Triglycerides 65 mg/dL (< 150)
[2024-12-04 16:03] LABS: LDL Cholesterol 49 mg/dL (< 100)
[2024-12-04 16:04] LABS: Cholesterol 109 mg/dL (< 200); HDL Cholesterol 50 mg/dL (40-59)
[2024-12-04] MEDS: HYDROcodone-ACET 5/325MG TAB PO PRN (17:12)
[2024-12-04] MEDS: ATORVASTATIN 20 MG TAB PO SCH (22:14)
[2024-12-05] VITALS (8 sets, daily range): BP systolic 94–116; BP diastolic 67–85; PULSE 64–94; RESP 16–18; TEMP 97–98.2; O2SAT 94–98
[2024-12-05 06:24] LABS: Basophils # (auto) 0.1 10 ^3/uL (0-0.2); Basophils % (auto) 1.1 % (0.0-2.0); Eosinophils # (auto) 0.2 10 ^3/uL (0-0.8); Eosinophils % (auto) 2.9 % (0.0-7.0); Hematocrit 47.1 % (36.0-46.0); Hemoglobin 16.3 g/dL (12.2-16.2); Lymphocytes # (auto) 1.7 10 ^3/uL (0.4-5.4); Lymphocytes % (auto) 26.5 % (10.0-50.0); Mean Corpuscular Hemoglobin 32.3 pg (28.0-32.0); Mean Corpuscular Hgb Conc. 34.6 g/dL (32.0-36.0); Mean Corpuscular Volume 93.1 fL (80.0-100.0); Monocytes # (auto) 0.7 10 ^3/uL (0-1.3); Monocytes % (auto) 10.2 % (0.0-12.0); Neutrophils # (auto) 3.9 10 ^3/uL (1.6-8.6); Neutrophils % (auto) 59.3 % (37.0-80.0); Nucleated Red Blood Cells % 0.1 %; Platelet Count (auto) 180 10^3/uL (140-450); Red Blood Cells 5.06 10^6/uL (4.0-5.20); Red Cell Distribution Width 14.8 % (11.8-14.3); White Blood Cell 6.6 10^3/uL (4.4-10.8)
[2024-12-05 07:49] LABS: Chloride 103 mmol/L (98-107); Potassium 3.8 mmol/L (3.5-5.1); Sodium 140 mmol/L (136-145)
[2024-12-05 07:50] LABS: Anion Gap 10 (5-15); Calcium 8.7 mg/dL (8.7-10.4); Carbon Dioxide 27 mmol/L (20-31)
[2024-12-05 07:55] LABS: BUN/Creatinine Ratio 23.1 (10.0-20.0); Blood Urea Nitrogen 21 mg/dL (9-23); Glucose 120 mg/dL (74-106)
[2024-12-05] MEDS ORDERED: ASPI-543 PO (16:55)
[2024-12-05] MEDS ORDERED: LOSA-533 PO (16:55)
[2024-12-05] MEDS ORDERED: CLOP75TA70 PO (16:55)
[2024-12-05] MEDS ORDERED: ATOR20TA50 PO (16:55)
[2024-12-05] MEDS ORDERED: CARV6.2551 PO (16:55)
[2024-12-05] MEDS ORDERED: FURO40TA4 PO (17:00)
--- NOTE | 2024-12-05 17:41 | DVHDSRES ---
Discharge Summary Date of Admission Resident Creating Document: RYLIE SAGASTUME RESIDENT December 03, 2024 at 20:56 Date of Discharge: December 05, 2024 Admitting Diagnosis #Acute exacerbation of on chronic HFrEF #Ischemic cardiomyopathy #recent CAD sp stent #Hypertensive heart disease with systolic dysfunction #Rheumatoid arthritis on biologic treatment #JERONIMO due to VMN, possible CKD (unknown creatinine) #Transaminitis #Possible UTI Wounds: none Labs/Diagnostic Data: Laboratory Results Test 12/05/24 05:35 12/04/24 04:03 12/03/24 19:43 White Blood Count 6.6 10^3/uL (4.4-10.8) Red Blood Count 5.06 10^6/uL (4.0-5.20) Hemoglobin 16.3 g/dL (12.2-16.2) Hematocrit 47.1 % (36.0-46.0) Mean Corpuscular Volume 93.1 fL (80.0-100.0) Mean Corpuscular Hemoglobin 32.3 pg (28.0-32.0) Mean Corpuscular Hemoglobin Concent 34.6 g/dL (32.0-36.0) Red Cell Distribution Width 14.8 % (11.8-14.3) Platelet Count 180 10^3/uL (140-450) Mean Platelet Volume 8.1 fL (6.9-10.8) Neutrophils (%) (Auto) 59.3 % (37.0-80.0) Lymphocytes (%) (Auto) 26.5 % (10.0-50.0) Monocytes (%) (Auto) 10.2 % (0.0-12.0) Eosinophils (%) (Auto) 2.9 % (0.0-7.0) Basophils (%) (Auto) 1.1 % (0.0-2.0) Neutrophils # (Auto) 3.9 10 ^3/uL (1.6-8.6) Lymphocytes # (Auto) 1.7 10 ^3/uL (0.4-5.4) Monocytes # (Auto) 0.7 10 ^3/uL (0-1.3) Eosinophils # (Auto) 0.2 10 ^3/uL (0-0.8) Basophils # (Auto) 0.1 10 ^3/uL (0-0.2) Nucleated Red Blood Cells 0.1 % Sodium Level 140 mmol/L (136-145) Potassium Level 3.8 mmol/L (3.5-5.1) Chloride Level 103 mmol/L (98-107) Carbon Dioxide Level 27 mmol/L (20-31) Anion Gap 10 (5-15) Blood Urea Nitrogen 21 mg/dL (9-23) Creatinine 0.91 mg/dL (0.550-1.02) Glomerular Filtration Rate Calc 75 mL/min (>90) BUN/Creatinine Ratio 23.1 (10.0-20.0) Serum Glucose 120 mg/dL (74-106) Calcium Level 8.7 mg/dL (8.7-10.4) Magnesium Level 2.0 mg/dL (1.6-2.6) Hemoglobin A1c 6.7 % A1C (<5.7) Total Bilirubin 0.6 mg/dL (0.2-1.0) Aspartate Amino Transferase (AST) 49 U/L (13-40) Alanine Aminotransferase (ALT) 62 U/L (7-40) Alkaline Phosphatase 130 U/L (46-116) B-Type Natriuretic Peptide 1560.78 pg/mL (0-100) Total Protein 7.0 g/dL (5.7-8.2) Albumin 3.9 g/dL (3.2-4.8) Triglycerides Level 65 mg/dL (< 150) Cholesterol Level 109 mg/dL (< 200) LDL Cholesterol 49 mg/dL (< 100) HDL Cholesterol 50 mg/dL (40-59) Thyroid Stimulating Hormone (TSH) 2.13 uIU/mL (0.55-4.78) Troponin I High Sensitivity 22 ng/L (</=34) Other Laboratory Tests 12/05/24 05:35 Brief Hx & Hospital Course: HPI 54-year-old female with past medical history of chronic HFrEF, ischemic cardiomyopathy s/p recent CAD stenting (unknown coronary anatomy), HTN and rheumatoid arthritis on biologic therapy (Etanercept), presents to the ED for evaluation of progressively worsening shortness of breath over the past month and leg edema. She reports associated symptoms including cough, congestion, intermittent low-grade fever, and generalized malaise. She was previously evaluated at [facility] ED earlier today and left AMA. She denies chest pain. No recent travel, sick contacts, or changes in medications. She has a known history of reduced EF (38%) and underwent a r nuclear stress test in June 2024 which showed anteroseptal ischemia and moderately to severely reduced LV function with a dilated LV. She is followed by Dr. Soliman from [place] (cardiology) and is unsure of her current anatomy or stent details. Past Medical History:as per HPI Surgical History: Home Medications: Aspirin 81 mg daily, Carvedilol 6.25 mg BID, Furosemide 40 mg daily, Losartan 25 mg daily Social History: Currently vapes but denies tobacco smoking, alcohol, drug use Brief hospital course Patient admitted to the hospital with a worsening shortness of breath and bilateral leg edema. Patient was treated in the hospital with the IV diuretics with Lasix and continued on guideline directed medical therapy as permitted by her blood pressure. Patient's shortness of breath improved and her functional status improved, she was able to walk and go up and down the stairs without feeling shortness of breath. Patient did not report of any cough, fever or expectoration. On examination patient did not have any jugular venous distention, rales or wheezing. While in the hospital she was found to have HbA1c levels of 6.7% and was advised dietary and lifestyle modification. Patient was discharged in stable condition to home. Discharge plan Disposition: Home Medications: Aspirin, Plavix, atorvastatin, carvedilol, Lasix, losartan, albuterol inhaler Follow up in the discharge clinic in [address] Soliman in the cardiology outpatient clinic, Dr. Harmon in the pulmonology outpatient clinic as scheduled Consults/Reason for consult none Operations or Procedures none Condition at Discharge: Good Final Diagnosis/Problems List Hypertensive heart disease with acute on chronic HFrEF Ischemic cardiomyopathy CAD s/p stent in june 2025 COPD, no exacerbation ?PANFILO Rheumatoid arthritis on biologic treatment JERONIMO due to VMN, possible CKD Transaminitis Diabetes mellitus type 2 HGB A1c 6.7 Possible UTI Discharge Disposition: Home Discharge Instruct/Medications Diet: Cardiac 2g Na,low cholest Activity: No Restrictions, As Tolerated Follow Up/Referral: Follow up in the discharge clinic in 1 week Follow up with the PCP in 1-2 weeks Medications: as per EMR Discharge Statement: "Patient was advised to return to the ER or call 911 if any headaches, dizziness, shortness of breath, chest pain, abdominal pain, bleeding, fevers, or worsening of medical condition. Patient was counseled about treatment plan, medications, possible side effects, patientverbalized understanding. All questions were answered to the best of my ability. This discharge took greater then 30 minutes in planning, reviewing documentation, counseling the patient, and discussing with other team members." ASSESSMENT ASSESSMENT Assessment Hypertensive heart disease with acute on chronic HFrEF Ischemic cardiomyopathy CAD s/p stent in june 2025 COPD, no exacerbation ?PANFILO Rheumatoid arthritis on biologic treatment JERONIMO due to VMN, possible CKD Transaminitis Diabetes mellitus type 2 HGB A1c 6.7 Possible UTI Date of Service: December 05, 2024 Billing Provider: AVELINA LAURA MD Common Visit Codes: [id number]/OBS DISCH DAY >30min RYLIE SAGASTUME RESIDENT December 05, 2024 17:41 AVELINA LAURA MD December 06, 2024 14:16
[2024-12-05] MEDS ORDERED: ALBUAER3 IN (19:39)
--- NOTE | 2024-12-06 10:52 | DVHSR ---
APPROVED REPORT EXAM: Two-dimensional and M-mode echocardiogram with Doppler and color Doppler. Blood Pressure: 104/66 mmHg INDICATION Acute HFrEF RISK FACTORS Height: 5', Weight: 128 DIMENSIONS LVDd2.8 (3.8-5.7cm)LA (2D)1.6 (1.9-4.0cm)Aortic Root3.2 (2.0-3.7cm) LVDs1.7 (2.5-4.0cm)LA (MM) (1.9-4.0cm)Aortic Cusp Exc1.2 (1.5-2.0cm) EF (%) 70.0 (55-70%)Rt. Atrium7.2 (1.9-4.0cm)Asc. Aorta cm IVSd1.2 (0.7-1.1cm)RV (D) (1.8-2.4cm) PWd1.3 (0.7-1.1cm) Mitral Valve MitralMitral Stenosis E wave0.50m/sMV Mean GR.mmHg A wave0.90m/sMV Peak GR.mmHg E/A ratio0.62D MVAcm2 Aortic Valve Aortic ValveAortic Stenosis V11.30m/Juana Mean GR.4mmHg V21.40m/Juana Peak GR.8mmHg LVOT Diameter1.7 (1.8-2.4cm)Doppler AVA2.11cm2 Tricuspid Valve TR Velocity5.10m/s [id number] Conclusion lvef 55% flattened IV septum c/w RV pressure/volume overload RV marked enlargement and dysfunction RA enlarged severe tricuspid regurg severe pulm htn
== END 2024-12-05 18:48 | disposition home or self-care (01) | DRG 194 ==
LOC: ER 16:39 → OVERFLOW 20:56 → EAST 22:40
PROVIDERS: ATTEND Physician Assistant
DX: I13.0 Hypertensive heart and chronic kidney disease with heart failure and stage 1 through stage 4 chronic kidney disease, or unspecified chronic kidney disease (principal); N17.0 Acute kidney failure with tubular necrosis; E11.22 Type 2 diabetes mellitus with diabetic chronic kidney disease; I50.23 Acute on chronic systolic (congestive) heart failure; N18.9 Chronic kidney disease, unspecified; J44.9 Chronic obstructive pulmonary disease, unspecified; I25.5 Ischemic cardiomyopathy; I25.10 Atherosclerotic heart disease of native coronary artery without angina pectoris; N39.0 Urinary tract infection, site not specified; E87.6 Hypokalemia; F17.200 Nicotine dependence, unspecified, uncomplicated; R74.01 Elevation of levels of liver transaminase levels; G47.33 Obstructive sleep apnea (adult) (pediatric); Z95.5 Presence of coronary angioplasty implant and graft
CPT/HCPCS: 36415; 76705; 80048; 80053; 80061; 83036; 83735; 83880; 84443; 84484; 85025; 93306; 96365; 96375; G0378

== ENCOUNTER 2025-01-27 07:13 | Inpatient (IN) | payer MEDICAID ==
[~2025-01-27] VITALS: Ht 152.4 cm; Wt 58.4 kg
[~2025-01-27 07:13] MED LIST: ALBUAER3 IN; ASPI-543 PO; ATOR20TA50 PO; CARV6.2551 PO; CLOP75TA70 PO; FURO40TA4 PO; LOSA-533 PO
--- NOTE | 2025-01-27 07:41 | ED.PDOC ---
HPI Comments HPI: Initial Vitals BP: HR: RR: O2: Temp: Past Medical History: HTN, PULMONARY HTN, CHF, COPD Past Surgical History: , STENT X1 Social History: Denies ETOH, smoking, and drug use. Medications: LOSARTAN, LASIX, PLAVIX, ASPIRIN, ENTRESTO Allergies: NKA HPI: Poor Historian. 54-year-old female presents to emergency department for evaluation of a syncope and collapse that happened last night at home. Patient states that she was feeling her heart palpitating and beating out of control and then she passed out and next thing she knows she was on the floor in the bathroom. She called her daughter last night and the daughter brought her to the hospital today. Patient states she has been compliant with the medications as of yesterday but she has not taken any of her medications today. Patient has some left facial contusion but denies any pain in her body. Denies any active chest pain or shortness of breath. Denies any use of drugs or alcohol REVIEW OF SYSTEMS: CONSTITUTIONAL: Denies acute: fever, diaphoresis, chills, generalized weakness. HEAD: Denies acute: headache, photophobia Eyes: Denies acute: Double vision, vision loss, eye pain, eye discharge. EARS: Denies acute: tinnitus, hearing loss, ear discharge, ear pain, THROAT: Denies acute: sore throat, swelling, difficulty swallowing , pain with swallowing, change in voice. NECK: Denies acute: neck pain, neck swelling, stiff neck. HEART: Denies acute : chest pain, palpitations, LUNGS: Denies acute: SOB, wheezing, cough, hemoptysis ABDOMEN: Denies acute: abdominal pain, Nausea, Vomiting, diarrhea, melena , hematemesis, hematochezia SKIN: Denies acute: rash, redness, lesions, itchiness. EXTREMITIES: Denies acute: calf pain, numbness, tingling, weakness, denies pain in extremity. Denies acute: Low back pain. Neuro: Denies acute: focal neurological deficit, motor or sensory focal neurological deficit, tremors, seizure like activity, confusion, dizziness, change in mental status, loss of bowel or bladder function, cauda equina like symptoms. : Denies acute: dysuria, hematuria, flank pain, increase in urinary frequency. PSYCH: Denies acute: hallucination, suicidal ideation, homicidal ideation. FEMALE: Denies acute: abnormal vaginal bleeding, foul odor, unusual discharge. PHYSICAL EXAM: General: ----no----acute distress, awake and alert. Head: normocephalic, atraumatic. Noted minimal left periorbital bruise Neck: supple, trachea is midline, no swelling. Throat: Normal phonation. Eyes:, no erythema, no purulent discharge, no proptosis, no icterus. Heart: regular rate, regular rhythm, no significant murmur appreciated. Lungs: no apparent respiratory distress, Able to speak in full sentences. No wheezing, no rhonchi, no crackles. No stridors Clear to auscultation bilaterally. Abdomen: non tender to palpation, non distended, soft, no guarding, no rebound, + bowel sounds. Neuro: Awake, Alert, oriented to name, self, situation, follows commands GCS=15. Speech is normal. Skin: no petechia, no purpura, no cyanosis, non-pale, not jaundice. Lower extremities: --trace- Pitting edema no deformity, no focal swelling, no calf TTP. Makes eye contact. moves all four extremities. Face: no apparent facial droop. Ambulating in the ED independently. ED COURSE: DISCLAIMER: This medical document was created using an electronic medical record system with voice recognition software and computerized dictation system. Although this document has been carefully reviewed, there might still be some phonetic and typographical errors. Occasional wrong-word or "sound-alike" substitutions may have occurred due to the inherent limitations of voice recognition software. These areas are purely typographical due to imperfections of the software programs and do not reflect any compromise in the patient's medical care. Please read the chart carefully and recognize, using context, where these substitutions have occurred. Time Seen by MD: 07:30 Primary Care Provider: UNKNOWN Reviewed Notes: Nurses Notes, Medications, Allergies Allergies: Coded Allergies: NO KNOWN ALLERGIES (Unverified , 05/18/24) Home Meds Active Scripts Albuterol Sulfate (VENTOLIN MDI) 90 Mcg Ih, 90 MCG IN BID PRN for 30 Days, #2 INH 0 Refills Prov:JHJENNIFER KITCHENMARY [facility] 12/05/24 Furosemide (Furosemide) 40 Mg Tab, 40 MG PO DAILY for 30 Days, #14 TAB Prov:AndresCE HongALEENAMARY [facility] 12/05/24 Clopidogrel Bisulfate (CLOPIDOGREL) 75 Mg Tab, 75 MG PO DAILY for 30 Days, #30 TAB Prov[facility] [place] [facility]/05/24 Aspirin (Aspir-Low) 81 Mg Tab, 81 MG PO DAILY for 30 Days, #30 MG Prov:JENNIFER KITCHENMARY [facility] 12/05/24 Losartan Potassium (Losartan Potassium) 25 Mg Tab, 25 MG PO DAILY for 30 Days, #30 MG Prov:[facility] 12/05/24 Carvedilol (Carvedilol) 6.25 Mg Tab, 6.25 MG PO Q12HR for 30 Days, #30 MG Prov:[facility]ITALCE HongHAY[facility] [place] 12/05/24 Information Source: Patient Mode of Arrival: Ambulatory Severity: Moderate Timing: Days Duration: Since onset Prehospital treatment: None Onset: At Rest Cardiac Risk Factors: HTN PE Risk Factors: None History of: None Modifying Factors: Nothing Associated Signs and Symptoms: None Past Medical History PAST MEDICAL HISTORY: CHF, COPD, HTN Surgical History: LIFEGUARD History: Denies all LIFEGUARD Hx Family History Family History: Unknown Social History Smoker: Non-Smoker, Other Alcohol: Denies ETOH Use Drugs: Denies Drug Use Lives In: Home Constitutional: denies: chills, diaphoresis, fatigue, fever, malaise, sweats, weakness, others EENTM: denies: blurred vision, double vision, ear bleeding, ear discharge, ear drainage, ear pain, ear ringing, eye pain, eye redness, hearing loss, mouth pain, mouth swelling, nasal discharge, nose bleeding, nose congestion, nose pain, photophobia, tearing, throat pain, throat swelling, voice changes, others Respiratory: denies: cough, hemoptysis, orthopnea, SOB at rest, shortness of b reath, SOB with excertion, stridor, wheezing, others Cardiovascular: denies: chest pain, dizzy spells, diaphoresis, Dyspnea on exertion, edema, irregular heart beat, left arm pain, lightheadedness, palpitations, PND, syncope, others Gastrointestinal: denies: abdomen distended, abdominal pain, blood streaked bowels, constipated, diarrhea, dysphagia, difficulty swallowing, hematemesis, melena, nausea, poor appetite, poor fluid intake, rectal bleeding, rectal pain, vomiting, others Genitourinary: denies: abnormal vagina bleeding, burning, dyspareunia, dysuria, flank pain, frequency, hematuria, incontinence, pain, , vagina discharge, urgency, others Neurological: reports: fainting; denies: dizziness, headache, left sided numbness, left sided weakness, numbness, paresthesia, pre-existing deficit, right sided numbness, right sided weakness, seizure, speech problems, tingling, tremors, weakness, others Musculoskeletal: denies: back pain, gout, joint pain, joint swelling, muscle pain, muscle stiffness, neck pain, others Integumetry: denies: bruises, change in color, change in hair/nails, dryness, laceration, lesions, lumps, rash, wounds, others Allergic/Immunocompromised: denies: Difficulty Healing, Frequent Infections, Hives, Itching, others Hematologic/Lymphatic: denies: anemia, blood clots, easy bleeding, easy brui sing, swollen glands, others Endocrine: denies: excessive hunger, excessive sweating, excessive thirst, ex cessive urination, flushing, intolerance to cold, intolerance to heat, unexplained weight gain, unexplained weight loss, others Psychiatric: denies: anxiety, bipolar disorder, depression, hopeless, panic disorder, schizophrenia, sleepless, suicidal, others All Other Systems: Reviewed and Negative Physical Exam General Appearance: Other HEENT: Other Neck: Other Respiratory: Other Cardiovascular: Other Breast Exam: None Gastrointestinal: Other Genitalia: Other Pelvic: Other Rectal: Other Extremities: Other Neurologic: Other Cerebellar Function: Other Reflexes: Other Skin: Other Lymphatic: Other EKG EKG : Pulse Rate (adult): 78 [place]: Normal Cardiac Rhythm: NSR Block: None Hypertrophy: None ST: Normal Comments ischemic depression in leads 2, 3, and AF Was a procedure done? Was a procedure done?: No CP Differential Dx Differential Diagnosis: Anxiety / Panic Attack, Other (Anemia, CVA, dehydration, dysrhythmia, electrolyte imbalance, encephalopathy, Guillain-Karval, hypoglycemia, hypotension, hypovolemia, labeled with HIDA some many years disease, myasthenia gravis, [place], pulmonary embolus, renal failure, respiratory f ailure, TIA, VPI, vertigo central, vertigo peripheral, vestibular neuronitis) Differential Diagnosis: HTN Essential, HTN Accelerated Differential Diagnosis: Angina, Chest Wall Pain, Costochondritis, Esophageal re flux/spasm, Gastritis, Other (Includes but not limited to thyroid disease, encephalopathy, electrolyte abnormality, sepsis, infection, intracranial pathology, drug adverse effects, arrhythmia, kidney insufficiency, ACS, CVA, malignancy, anemia) X-Ray, Labs, Meds, VS Vital Signs Date Time Temp Pulse Resp B/P (MAP) Pulse Ox O2 Delivery O2 Flow Rate FiO2 01/27/25 12:00 78 01/27/25 12:00 78 15 105/74 (84) 95 01/27/25 11:00 80 15 98 Room Air* 0 21 01/27/25 10:00 97.9 74 16 127/76 (93) 96 97.9 01/27/25 09:13 99.0 76 16 103/68 (80) 96 99.0 01/27/25 09:13 76 16 96 Room Air 01/27/25 09:10 103/68 01/27/25 07:47 78 01/27/25 07:44 98.2 81 17 106/52 (70) 100 98.2 01/27/25 07:42 78 Lab Test 01/27/25 11:54 01/27/25 09:56 01/27/25 08:51 01/27/25 08:02 Range/Units Troponin I High Sensitivity 14 16 20 </=34 ng/L Lactic Acid Level 2.2 *H 2.3 *H 0.4-2.0 mmol/L Urine Color Colorless Yellow Urine Clarity Clear Clear Urine pH 7.0 5.0-9.0 Urine Specific Stephen 1.005 1.001-1.035 Urine Protein Negative Negative Urine Ketones Negative Negative Urine Blood Negative Negative /uL Urine Nitrite Negative Negative Urine Bilirubin Negative Negative Urine Urobilinogen Normal Negative mg/dL Urine Leukocyte Esterase Negative Negative /uL Urine RBC <1 0 - 4 /hpf Urine Microscopic WBC < 1 0-5 /HPF Urine Squamous Epithelial Cells Few <5 /hpf Urine Bacteria None seen None Seen /hpf Urine Glucose Normal Normal mg/dL Urine Opiates Screen Neg NEGATIVE Urine Fentanyl Screen Neg NEGATIVE Urine Barbiturates Screen Neg NEGATIVE Urine Phencyclidine Screen Neg NEGATIVE Urine Amphetamines Screen Pos NEGATIVE Urine Benzodiazepines Screen Neg NEGATIVE Urine Cocaine Screen Neg NEGATIVE Urine Cannabinoids Screen Neg NEGATIVE White Blood Count 5.0 4.4-10.8 10^3/uL Red Blood Count 4.76 4.0-5.20 10^6/uL Hemoglobin 15.2 12.2-16.2 g/dL Hematocrit 45.3 36.0-46.0 % Mean Corpuscular Volume 95.2 80.0-100.0 fL Mean Corpuscular Hemoglobin 32.0 28.0-32.0 pg Mean Corpuscular Hemoglobin Concent 33.6 32.0-36.0 g/dL Red Cell Distribution Width 15.1 H 11.8-14.3 % Platelet Count 204 140-450 10^3/uL Mean Platelet Volume 8.0 6.9-10.8 fL Neutrophils (%) (Auto) 67.9 37.0-80.0 % Lymphocytes (%) (Auto) 20.1 10.0-50.0 % Monocytes (%) (Auto) 9.3 0.0-12.0 % Eosinophils (%) (Auto) 1.7 0.0-7.0 % Basophils (%) (Auto) 1.0 0.0-2.0 % Neutrophils # (Auto) 3.4 1.6-8.6 10 ^3/uL Lymphocytes # (Auto) 1.0 0.4-5.4 10 ^3/uL Monocytes # (Auto) 0.5 0-1.3 10 ^3/uL Eosinophils # (Auto) 0.1 0-0.8 10 ^3/uL Basophils # (Auto) 0 0-0.2 10 ^3/uL Nucleated Red Blood Cells 0.1 % Sodium Level 141 136-145 mmol/L Potassium Level 3.0 L 3.5-5.1 mmol/L Chloride Level 105 98-107 mmol/L Carbon Dioxide Level 24 20-31 mmol/L Anion Gap 12 5-15 Blood Urea Nitrogen 23 9-23 mg/dL Creatinine 0.93 0.550-1.02 mg/dL Glomerular Filtration Rate Calc 73 >90 mL/min BUN/Creatinine Ratio 24.7 H 10.0-20.0 Serum Glucose 114 H 74-106 mg/dL Calcium Level 10.1 8.7-10.4 mg/dL Magnesium Level 2.0 1.6-2.6 mg/dL Total Bilirubin 1.1 H 0.2-1.0 mg/dL Aspartate Amino Transferase (AST) 40 13-40 U/L Alanine Aminotransferase (ALT) 51 H 7-40 U/L Alkaline Phosphatase 114 46-116 U/L Creatine Kinase 67 34-145 U/L B-Type Natriuretic Peptide 761.33 0-100 pg/mL Total Protein 7.9 5.7-8.2 g/dL Albumin 4.6 3.2-4.8 g/dL Test 01/27/25 07:37 Range/Units Urine Opiates Screen Neg NEGATIVE Urine Fentanyl Screen Neg NEGATIVE Urine Barbiturates Screen Neg NEGATIVE Urine Phencyclidine Screen Neg NEGATIVE Urine Amphetamines Screen Pos NEGATIVE Urine Benzodiazepines Screen Neg NEGATIVE Urine Cocaine Screen Neg NEGATIVE Urine Cannabinoids Screen Neg NEGATIVE Microbiology Date/Time Source Procedure Growth Status 01/27/25 09:56 Blood Blood Culture - Preliminary NO GROWTH AFTER 72 HOURS OF INCUBATION. Resulted 01/27/25 09:45 Blood Blood Culture - Preliminary NO GROWTH AFTER 72 HOURS OF INCUBATION. Resulted [place] [address] Ph: [phone] DIAGNOSTIC IMAGING Diagnostic Imaging Report : [id number] Signed PATIENT: JAIR PARR ACCT: [id number] UNIT: [id number] : 1970 LOC: ER ROOM / BED: / AGE / SEX: 54 / F ADM STATUS: REG ER SERVICE [id number] ORDERING PHYSICIAN: CHAPIS HORTON DO PROCEDURE(s): CXRP - CHEST PORTABLE REASON: Syncope and collapse ORDER NUMBER(s): [id number], ACCESSION NUMBER(s): [id number] XY CHEST PORTABLE, HISTORY: Syncope and collapse COMPARISON: XY CHEST PORTABLE on DOS: 12/03/24 XY CHEST PORTABLE on DOS: 12/03/24 TECHNICAL DATA: 1 view of the chest was obtained. FINDINGS: Lines and tubes: None Cardiomediastinal silhouette: normal Pulmonary vasculature: normal Lung expansion: normal Lung airspace: Patchy left basilar airspace opacity could be consolidation. Lung interstitium: normal Pleura: normal Pneumothorax: no Bones: Unremarkable Other: no IMPRESSION: Patchy left basilar airspace opacity could be consolidation. ATED BY: ENZO GIRON MD DICTATED DATE/TIME: 01/27/25822 SIGNED BY: ENZO GIRON MD SIGNED DATE/TIME: 01/27/25822 CC: [address] [address] Ph: [phone] DIAGNOSTIC IMAGING Diagnostic Imaging Report : [id number] Signed PATIENT: JAIR PARR ACCT: [id number] UNIT: [id number] : 1970 LOC: ER ROOM / BED: / AGE / SEX: 54 / F ADM STATUS: REG ER SERVICE 6 ORDERING PHYSICIAN: CHAPIS HORTON DO PROCEDURE(s): HWOCT - HEAD WITHOUT CONTRAST REASON: Syncope and collapse ORDER NUMBER(s): [id number], ACCESSION NUMBER(s): [id number] CT HEAD WITHOUT CONTRAST INDICATION: Syncope and collapse EXAM DATE: 01/27/2025 07:57 AM COMPARISON: None RADIATION DOSE: CTDIvol: 48 mGy, DLP: 778 mGy*cm PROCEDURE: CT scans of the head were obtained from the vertex to the skull base. Sagittal and coronal reconstructions were provided. All CT scans at this medical facility are performed using dose modulation techniques as appropriate to a performed exam including the following: Automated exposure control was utilized; adjustment of the MA and/or KV according to patient size; and use of iterative reconstruction technique. FINDINGS: There is sulcal and ventricular prominence. The brainshows normal morphology and magana-white matter differentiation, without intracranial hemorrhage, extra-axial fluid collection, mass effect or acute large vessel infarct. The ventricles are normal in size. The basal cisterns are patent. The skull and visible facial bones are intact. The paranasal sinuses, mastoid air cells and middle ear cavities are well-aerated. The soft tissues of the scalp are unremarkable. IMPRESSION: No acute intracranial abnormality. ATED BY: ENZO GIRON MD DICTATED DATE/TIME: 01/27/25834 SIGNED BY: ENZO GIRON MD SIGNED DATE/TIME: 01/27/25834 CC: [address] [address] Ph: [phone] DIAGNOSTIC IMAGING Diagnostic Imaging Report : [id number] Signed PATIENT: JAIR PARR ACCT: [id number] UNIT: [id number] : 1970 LOC: ER ROOM / BED: / AGE / SEX: 54 / F ADM STATUS: REG ER SERVICE 6 ORDERING PHYSICIAN: CHAPIS HORTON DO PROCEDURE(s): CS2 - CERVICAL WITHOUT CONTRAST REASON: Syncope and collapse ORDER NUMBER(s): [id number], ACCESSION NUMBER(s): [id number] EXAM: CT CERVICAL WITHOUT CONTRAST INDICATION: Syncope and collapse EXAM DATE: 01/27/2025 07:57 AM COMPARISON: None TECHNIQUE: Multiple axial CT images of the cervical spine were obtained using bone algorithm. Sagittal and coronal reformatting was done. Bone and soft tissue windows were reviewed. Radiation Dose Information: CT Dose: CTDI volume is 10.3 mGy. Dose-length product is 210.9 mGy*cm FINDINGS: The cervical alignment is intact. Reversal of the cervical lordosis. No acute cervical spine fracture is identified. The vertebral body heights are intact. No suspicious osseous lesions are identified. Mild multilevel intervertebral disc space narrowing. No significant spinal stenosis. Mild multilevel neural foraminal stenosis. There is no prevertebral soft tissue swelling. Lung apices are clear. IMPRESSION: 1. No evidence of acute cervical spine fracture or traumatic malalignment. 2. Degenerative changes in the cervical spine. All CT scans at this medical facility are performed using dose modulation techniques as appropriate to a performed exam including the following: Automated exposure control was utilized; adjustment of the MA and/or KV according to patient size; and use of iterative reconstruction technique. ATED BY: JUSTEN BUTTS MD DICTATED DATE/TIME: 01/27/25847 SIGNED BY: JUSTEN BUTTS MD SIGNED DATE/TIME: 01/27/25847 CC: Time of 1ST Reevaluation: 08:00 Reevaluation 1ST: Unchanged Patient Education/Counseling: Diagnosis, Treatment Family Education/Counseling: No Family Present Comments Patient presented with the above HPI.----syncope and collapse--workup was initiated. patient was found with the above mentioned diagnosis. the following medications were ordered: please refer to order lists of meds and tests obtained by myself Dr. Horton. Patient ED course and VS have been stabilized. Patient has been reassessed in the ED and remained in a stable condition. Pertinent incidental findings were discussed with the patient and/or family. Patient/family voices understanding and is agreeable with plan. Patient has been observed in the ED adequate length of time to insure improvement/stability. Escalation of care considered: Consideration of escalation to observation or admission Patient's son CHF exacerbation, Lasix was ordered. Patient's potassium was replaced. Patient was found with lung consolidation and Rocephin was initiated. Patient was ADMITTED to the medicine team for further evaluation and treatment of their presentation. All the reports of any imaging studies that were ordered by myself were reviewed by myself. SEPSIS Sepsis Screen Physician Orders Pharmacy Student (01/27/25 ) Chest Portable (01/27/25 07:37) Cervical Without Contrast (01/27/25 07:37) Head Without Contrast (01/27/25 07:37) Electrocardigram (01/27/25 08:37) Electrocardigram (01/27/25 10:37) Blood Culture (01/27/25 08:51) Notify Md If Map <65 Or Bp<90 (01/27/25 08:51) If Map<65 Start Vasopressor (01/27/25 08:51) Vital Signs Date Time Temp Pulse Resp B/P (MAP) Pulse Ox O2 Delivery O2 Flow Rate FiO2 01/27/25 12:00 78 01/27/25 12:00 78 15 105/74 (84) 95 01/27/25 11:00 80 15 98 Room Air* 0 21 01/27/25 10:00 97.9 74 16 127/76 (93) 96 97.9 01/27/25 09:13 99.0 76 16 103/68 (80) 96 99.0 01/27/25 09:13 76 16 96 Room Air 01/27/25 09:10 103/68 01/27/25 07:47 78 01/27/25 07:44 98.2 81 17 106/52 (70) 100 98.2 01/27/25 07:42 78 Laboratory Tests Test 01/27/25 08:02 01/27/25 09:56 Lactic Acid Level 2.3 mmol/L (0.4-2.0) *H 2.2 mmol/L (0.4-2.0) *H White Blood Count 5.0 10^3/uL (4.4-10.8) Departure 1 Departure Time of Disposition: 08:50 Impression: Primary Impression: Syncope and collapse Additional Impressions: Closed head injury CHF exacerbation Hypokalemia Lung consolidation Disposition: ADMITTED INPATIENT Admit to: Tele Condition: Guarded Discharged With: Self Critical Care Note Critical Care Time?: Yes (45 min-critical care time only) Stability Stability form required: No Heart Score Heart Score: Heart Score Response (Comments) Value History N/A 0 EKG N/A 0 Age N/A 0 Risk Factors N/A 0 Troponin N/A 0 Total 0 I personally scribed for CHAPIS HORTON DO ([email or web address]) on 01/27/25 at 07:41. Electronically submitted by Pretty Smith ([email or web address]). I personally scribed for CHAPIS HORTON DO ([email or web address]) on 01/27/25 at 07:47. Electronically submitted by Pretty Smith ([email or web address]). I personally scribed for CHAPIS HORTON DO ([email or web address]) on 01/27/25 at 08:42. Electronically submitted by Pretty Smith ([email or web address]). I personally scribed for CHAPIS HORTON DO ([email or web address]) on 01/27/25 at 08:42. Electronically submitted by Pretty Smith ([email or web address]). I personally scribed for CHAPIS HORTON J DO ([email or web address]) on 01/27/25 at 09:01. Electronically submitted by Pretty Smith ([email or web address]). CHAPIS HORTON DO Jan 27, 2025 07:41
--- NOTE | 2025-01-27 08:26 | DVH ---
XY CHEST PORTABLE, HISTORY: Syncope and collapse COMPARISON: XY CHEST PORTABLE on DOS: 12/03/24 XY CHEST PORTABLE on DOS: 12/03/24 TECHNICAL DATA: 1 view of the chest was obtained. FINDINGS: Lines and tubes: None Cardiomediastinal silhouette: normal Pulmonary vasculature: normal Lung expansion: normal Lung airspace: Patchy left basilar airspace opacity could be consolidation. Lung interstitium: normal Pleura: normal Pneumothorax: no Bones: Unremarkable Other: no IMPRESSION: Patchy left basilar airspace opacity could be consolidation.
[2025-01-27 08:29] LABS: Hematocrit 45.3 % (36.0-46.0); Hemoglobin 15.2 g/dL (12.2-16.2); Mean Corpuscular Hemoglobin 32.0 pg (28.0-32.0); Mean Corpuscular Volume 95.2 fL (80.0-100.0); Nucleated Red Blood Cells % 0.1 %
--- NOTE | 2025-01-27 08:38 | DVH ---
CT HEAD WITHOUT CONTRAST INDICATION: Syncope and collapse EXAM DATE: 01/27/2025 07:57 AM COMPARISON: None RADIATION DOSE: CTDIvol: 48 mGy, DLP: 778 mGy*cm PROCEDURE: CT scans of the head were obtained from the vertex to the skull base. Sagittal and coronal reconstructions were provided. All CT scans at this medical facility are performed using dose modulation techniques as appropriate t o a performed exam including the following: Automated exposure control was utilized; adjustment of th e MA and/or KV according to patient size; and use of iterative reconstruction technique. FINDINGS: There is sulcal and ventricular prominence. The brainshows normal morphology and magana-whi te matter differentiation, without intracranial hemorrhage, extra-axial fluid collection, mass effect or acute large vessel infarct. The ventricles are normal in size. The basal cisterns are patent. The skull and visible facial bones are intact. The paranasal sinuses, mastoid air cells and middle ear c avities are well-aerated. The soft tissues of the scalp are unremarkable. IMPRESSION: No acute intracranial abnormality.
[2025-01-27 08:43] LABS: Alkaline Phosphatase 114 U/L (46-116); Anion Gap 12 (5-15); BUN/Creatinine Ratio 24.7 (10.0-20.0); Blood Urea Nitrogen 23 mg/dL (9-23); Calcium 10.1 mg/dL (8.7-10.4); Carbon Dioxide 24 mmol/L (20-31); Chloride 105 mmol/L (98-107); Magnesium 2.0 mg/dL (1.6-2.6); Sodium 141 mmol/L (136-145); Total Protein 7.9 g/dL (5.7-8.2)
[2025-01-27 08:44] LABS: Albumin 4.6 g/dL (3.2-4.8); Bilirubin, Total 1.1 mg/dL (0.2-1.0); Creatine Kinase IFCC 67 U/L (34-145)
[2025-01-27 08:45] LABS: Alanine Aminotransferase 51 U/L (7-40); Glucose 114 mg/dL (74-106); Potassium 3.0 mmol/L (3.5-5.1)
[2025-01-27 08:48] LABS: Lactic Acid w/Reflex 2.3 mmol/L (0.4-2.0)
--- NOTE | 2025-01-27 08:51 | DVH ---
EXAM: CT CERVICAL WITHOUT CONTRAST INDICATION: Syncope and collapse EXAM DATE: 01/27/2025 07:57 AM COMPARISON: None TECHNIQUE: Multiple axial CT images of the cervical spine were obtained using bone algorithm. Sagitta l and coronal reformatting was done. Bone and soft tissue windows were reviewed. Radiation Dose Information: CT Dose: CTDI volume is 10.3 mGy. Dose-length product is 210.9 mGy*cm FINDINGS: The cervical alignment is intact. Reversal of the cervical lordosis. No acute cervical spine fracture is identified. The vertebral body heights are intact. No suspicious osseous lesions are identified. Mild multilevel intervertebral disc space narrowing. No significant spinal stenosis. Mild multilevel neural foraminal stenosis. There is no prevertebral soft tissue swelling. Lung apices are clear. IMPRESSION: 1. No evidence of acute cervical spine fracture or traumatic malalignment. 2. Degenerative changes in the cervical spine. All CT scans at this medical facility are performed using dose modulation techniques as appropriate t o a performed exam including the following: Automated exposure control was utilized; adjustment of th e MA and/or KV according to patient size; and use of iterative reconstruction technique.
[2025-01-27] MEDS: POTASSIUM CHL 20 Meq TABLET PO ONE (09:05)
[2025-01-27] MEDS: cefTRIAXone 1GM/50ML D5W 50 ML IV ONE (09:06)
[2025-01-27] MEDS: FUROSEMIDE 40 MG/4 ML VIAL IV ONE (09:10)
[2025-01-27 11:00] VITALS: PULSE 80; RESP 15; O2SAT 98
[2025-01-27 12:25] LABS: Cocaine Screen, Urine Neg (NEGATIVE)
[2025-01-27 12:34] LABS: Amphetamine Screen, Urine Pos (NEGATIVE); Barbiturate Scree,Urine Neg (NEGATIVE); Benzodiazephine Screen, Urine Neg (NEGATIVE); Cannabinoid Screen, Urine Neg (NEGATIVE); Opiate Scree,Urine Neg (NEGATIVE); Phencyclidine Screen, Urine Neg (NEGATIVE)
[2025-01-27 13:08] LABS: Urine Protein, UAD Negative (Negative)
[2025-01-27] MEDS ORDERED: MORPHINE SULFATE INJ 2 MG/ml SYRG IV PRN (14:00)
[2025-01-27] MEDS ORDERED: NITROGLYCERIN 0.4 MG SL TAB SL PRN (14:00)
[2025-01-27] MEDS ORDERED: ONDANSETRON HCL 4 MG/2 ML VIAL IV PRN (14:00)
--- NOTE | 2025-01-27 14:49 | DVH ---
Carotid Duplex Date: 01/27/2025 02:11 PM Clinical History: pain; r/o occlusion Comparison: None Technique: Duplex Doppler evaluation of the extracranial carotid and vertebral arteries including col or Doppler and spectral/pulsed waveform analysis was performed. Findings: RIGHT SIDE: The peak systolic velocities are 72 cm/s in the distal CCA and 68 cm/s in the proximal ICA.The ICA/CC A ratio is less than 1. The external carotid artery is patent with peak systolic velocity of 97 cm/s proximally. There is appropriate antegrade flow in the right vertebral artery. LEFT SIDE: The peak systolic velocities are 81 cm/s in the distal CCA and 76 cm/s in the proximal ICA.. The ICA/ CCA ratio is less than 1. The external carotid artery is patent with peak systolic velocity of 61 cm/s proximally. There is appropriate antegrade flow in the left vertebral artery. IMPRESSION: No hemodynamically significant stenosis noted in the right carotid system. No hemodynamically significant stenosis noted in the left carotid system. Reference: Radiology 2003; 229:[id number]
[2025-01-27 15:39] VITALS: BP 111/73; PULSE 79; RESP 18; TEMP 98.7; O2SAT 98
--- NOTE | 2025-01-27 15:59 | DVHHP2 ---
History of Present Illness Reason for Visit: Autonomic imbalance with palpitations History of Present Illness Xavier Samuel is a 54-year-old female with past medical history of CAD status post stent x1 placed in at [facility] in June of 2024, hypertension, pulmonary hypertension, COPD, ischemic cardiomyopathy, rheumatoid arthritis, CHF, and who presents to the ED with palpitations and left eye bruising status post syncope. Patient reports that she was in the bathroom yesterday around 12:00 p.m. was getting to her shower sat on the toilet when she passed out and woke up on the bathroom floor she stated that she hit her left side cheek and eye on the floor. Daughter Mary at the bedside. Patient was recently here last month and discharged after being admitted for a few days. Patient reports that she occasionally drinks and vapes. On tox screen also positive for amphetamines. Patient denies any chest pain, recent sick contacts, recent travels, weakness, dizziness, abdominal pain, nausea vomiting, diarrhea, shortness of breath, fever, chills, or urinary symptoms. Cardiovascular: CAD, CHF, HTN Pulmonary: COPD Past Medical History Pulmonary hypertension Ischemic cardiomyopathy Rheumatoid arthritis Past Surgical History: , Other (PTCA x1 in June of 2024 at [facility]) Smoke: <1 pack per day (Vape) ALCOHOL: occassional Drugs: Other (Positive for methamphetamines) Lives: with Family Domestic Violence: Neg Review of Systems Constitutional: Yes: Other (Syncope) Cardiovascular: Palpitations Allergies: Coded Allergies: NO KNOWN ALLERGIES (Unverified , 05/18/24) Medications Current Medications Medications Dose Ordered Sig/Hunter Route Start Time Stop Time Status Last Admin Dose Admin Ceftriaxone Sodium 50 ml @ 100 mls/hr DAILY@09 IV 01/28/25 09:00 Ondansetron HCl 4 mg Q4HP PRN IV 01/27/25 14:00 Acetaminophen 650 mg Q6HP PRN PO 01/27/25 14:00 Nitroglycerin 0.4 mg Q5MINP PRN SL 01/27/25 14:00 Morphine Sulfate 2 mg Q30M PRN IV 01/27/25 14:00 Aspirin 81 mg DAILY PO 01/28/25 10:00 Atorvastatin Calcium 40 mg HS PO 01/27/25 22:00 Clopidogrel Bisulfate 75 mg DAILY PO 01/28/25 10:00 Losartan Potassium 25 mg DAILY PO 01/28/25 10:00 Carvedilol 6.25 mg Q12HR PO 01/27/25 22:00 Furosemide 40 mg DAILY IV 01/28/25 10:00 Exam Vital Signs Vital Signs Date Time Temp Pulse Resp B/P (MAP) Pulse Ox O2 Delivery O2 Flow Rate FiO2 01/27/25 14:00 85 15 112/83 (93) 96 01/27/25 11:00 Room Air* 0 21 01/27/25 10:00 97.9 97.9 General Appearance: Alert, Oriented X3, Cooperative, No acute distress HEENT: Atraumatic, PERRLA, EOMI, Mucous membr. moist/pink Respiratory: Clear to auscultation, Normal air movement Cardiovascular: Regular rate, Normal S1, Normal S2 Abdominal: Normal bowel sounds, Soft Extremities: No clubbing, No cyanosis, No edema, Normal pulses Neuro: Normal speech, Strength at 5/5 X4 ext, Normal tone, Sensation intact Psych/Mental Status: Mental status NL, Mood NL Labs/Xrays Labs Test 01/27/25 11:54 01/27/25 09:56 01/27/25 08:51 01/27/25 08:02 Range/Units Troponin I High Sensitivity 14 </=34 ng/L Lactic Acid Level 2.2 *H 0.4-2.0 mmol/L Urine Color Colorless Yellow Urine Clarity Clear Clear Urine pH 7.0 5.0-9.0 Urine Specific [place] 1.005 1.001-1.035 Urine Protein Negative Negative Urine Ketones Negative Negative Urine Blood Negative Negative /uL Urine Nitrite Negative Negative Urine Bilirubin Negative Negative Urine Urobilinogen Normal Negative mg/dL Urine Leukocyte Esterase Negative Negative /uL Urine RBC <1 0 - 4 /hpf Urine Microscopic WBC < 1 0-5 /HPF Urine Squamous Epithelial Cells Few <5 /hpf Urine Bacteria None seen None Seen /hpf Urine Glucose Normal Normal mg/dL White Blood Count 5.0 4.4-10.8 10^3/uL Red Blood Count 4.76 4.0-5.20 10^6/uL Hemoglobin 15.2 12.2-16.2 g/dL Hematocrit 45.3 36.0-46.0 % Mean Corpuscular Volume 95.2 80.0-100.0 fL Mean Corpuscular Hemoglobin 32.0 28.0-32.0 pg Mean Corpuscular Hemoglobin Concent 33.6 32.0-36.0 g/dL Red Cell Distribution Width 15.1 H 11.8-14.3 % Platelet Count 204 140-450 10^3/uL Mean Platelet Volume 8.0 6.9-10.8 fL Neutrophils (%) (Auto) 67.9 37.0-80.0 % Lymphocytes (%) (Auto) 20.1 10.0-50.0 % Monocytes (%) (Auto) 9.3 0.0-12.0 % Eosinophils (%) (Auto) 1.7 0.0-7.0 % Basophils (%) (Auto) 1.0 0.0-2.0 % Neutrophils # (Auto) 3.4 1.6-8.6 10 ^3/uL Lymphocytes # (Auto) 1.0 0.4-5.4 10 ^3/uL Monocytes # (Auto) 0.5 0-1.3 10 ^3/uL Eosinophils # (Auto) 0.1 0-0.8 10 ^3/uL Basophils # (Auto) 0 0-0.2 10 ^3/uL Nucleated Red Blood Cells 0.1 % Sodium Level 141 136-145 mmol/L Potassium Level 3.0 L 3.5-5.1 mmol/L Chloride Level 105 98-107 mmol/L Carbon Dioxide Level 24 20-31 mmol/L Anion Gap 12 5-15 Blood Urea Nitrogen 23 9-23 mg/dL Creatinine 0.93 0.550-1.02 mg/dL Glomerular Filtration Rate Calc 73 >90 mL/min BUN/Creatinine Ratio 24.7 H 10.0-20.0 Serum Glucose 114 H 74-106 mg/dL Calcium Level 10.1 8.7-10.4 mg/dL Magnesium Level 2.0 1.6-2.6 mg/dL Total Bilirubin 1.1 H 0.2-1.0 mg/dL Aspartate Amino Transferase (AST) 40 13-40 U/L Alanine Aminotransferase (ALT) 51 H 7-40 U/L Alkaline Phosphatase 114 46-116 U/L Creatine Kinase 67 34-145 U/L B-Type Natriuretic Peptide 761.33 0-100 pg/mL Total Protein 7.9 5.7-8.2 g/dL Albumin 4.6 3.2-4.8 g/dL Test 7/3/25 07:37 Range/Units Urine Opiates Screen Neg NEGATIVE Urine Fentanyl Screen Neg NEGATIVE Urine Barbiturates Screen Neg NEGATIVE Urine Phencyclidine Screen Neg NEGATIVE Urine Amphetamines Screen Pos NEGATIVE Urine Benzodiazepines Screen Neg NEGATIVE Urine Cocaine Screen Neg NEGATIVE Urine Cannabinoids Screen Neg NEGATIVE Carotid Duplex Date: 01/27/2025 02:11 PM Clinical History: pain; r/o occlusion Comparison: None Technique: Duplex Doppler evaluation of the extracranial carotid and vertebral arteries including color Doppler and spectral/pulsed waveform analysis was performed. Findings: RIGHT SIDE: The peak systolic velocities are 72 cm/s in the distal CCA and 68 cm/s in the proximal ICA.The ICA/CCA ratio is less than 1. The external carotid artery is patent with peak systolic velocity of 97 cm/s proximally. There is appropriate antegrade flow in the right vertebral artery. LEFT SIDE: The peak systolic velocities are 81 cm/s in the distal CCA and 76 cm/s in the proximal ICA.. The ICA/CCA ratio is less than 1. The external carotid artery is patent with peak systolic velocity of 61 cm/s proximally. There is appropriate antegrade flow in the left vertebral artery. IMPRESSION: No hemodynamically significant stenosis noted in the right carotid system. No hemodynamically significant stenosis noted in the left carotid system. CT HEAD WITHOUT CONTRAST INDICATION: Syncope and collapse EXAM DATE: 01/27/2025 07:57 AM COMPARISON: None RADIATION DOSE: CTDIvol: 48 mGy, DLP: 778 mGy*cm PROCEDURE: CT scans of the head were obtained from the vertex to the skull base. Sagittal and coronal reconstructions were provided. All CT scans at this medical facility are performed using dose modulation techn iques as appropriate to a performed exam including the following: Automated exposure control was utilized; adjustment of the MA and/or KV according to patient size; and use of iterative reconstruction technique. FINDINGS: There is sulcal and ventricular prominence. The brainshows normal morphology and magana-white matter differentiation, without intracranial hemorrhage, extra-axial fluid collection, mass effect or acute large vessel infarct. The ventricles are normal in size. The basal cisterns are patent. The skull and visible facial bones are intact. The paranasal sinuses, mastoid air cells and middle ear cavities are well-aerated. The soft tissues of the scalp are unremarkable. IMPRESSION: No acute intracranial abnormality. XY CHEST PORTABLE, HISTORY: Syncope and collapse COMPARISON: XY CHEST PORTABLE on DOS: 12/03/24 XY CHEST PORTABLE on DOS: 12/03/24 TECHNICAL DATA: 1 view of the chest was obtained. FINDINGS: Lines and tubes: None Cardiomediastinal silhouette: normal Pulmonary vasculature: normal Lung expansion: normal Lung airspace: Patchy left basilar airspace opacity could be consolidation. Lung interstitium: normal Pleura: normal Pneumothorax: no Bones: Unremarkable Other: no IMPRESSION: Patchy left basilar airspace opacity could be consolidation. EXAM: CT CERVICAL WITHOUT CONTRAST INDICATION: Syncope and collapse EXAM DATE: 01/27/2025 07:57 AM COMPARISON: None TECHNIQUE: Multiple axial CT images of the cervical spine were obtained using bone algorithm. Sagittal and coronal reformatting was done. Bone and soft tissue windows were reviewed. Radiation Dose Information: CT Dose: CTDI volume is 10.3 mGy. Dose-length product is 210.9 mGy*cm FINDINGS: The cervical alignment is intact. Reversal of the cervical lordosis. No acute cervical spine fracture is identified. The vertebral body heights are intact. No suspicious osseous lesions are identified. Mild multilevel intervertebral disc space narrowing. No significant spinal stenosis. Mild multilevel neural foraminal stenosis. There is no prevertebral soft tissue swelling. Lung apices are clear. IMPRESSION: 1. No evidence of acute cervical spine fracture or traumatic malalignment. 2. Degenerative changes in the cervical spine. Assessment/Plan Assessment/Plan Assessment Autonomic imbalance with left eye and she contusion likely due to substance abuse Acute on chronic CHF exacerbation Probable pneumonia Lactic acidosis with probable sepsis Hypokalemia Hyperbilirubinemia Vape use Alcohol use Positive for amphetamines History of CAD status post stent x1 in June of 2024 at [facility] History of hypertension History of pulmonary hypertension History of COPD History of CHF History of ischemic cardiomyopathy History of rheumatoid arthritis History of Plan Admit to tele UA Lactic level CT head noted IV antibiotics-ceftriaxone Replete lytes Blood cultures UA EKG Troponin negative x2 CT cervical spine noted EKG Chest x-ray noted UA Troponins CK UDS Mag level BNP Diuretics Orthostatics Echo last done on 12/04/2024 EF 55% Ultrasound carotid Diet Strict I&Os Daily weight Home medications reconciled DVT prophylaxis-not indicated patient ambulating, patient also on Plavix PUD prophylaxis-PPIs Discussed plan of care with patient, patient's daughter, and nurse Rounding hospitalist to consider Cardiology consult Counseled patient on cessation of the use, alcohol use, and substance abuse [id number] Behavior change smoking greater than 10 minutes about use of other options also gave option of nicotine patch [id number] Preventive counseling healthy eating habits, physical activity, and regular checkups Plan discussed with: Patient, Daughter My Orders Orders - LINO ROMERO [employer] ADMINISTRATOR Procedure Category Date Status Time Ceftriaxone 1gm/50ml PHA 01/28/25 In Process D5w (Rocephin) 09:00 Strict I & O EMMA 01/27/25 In Process 13:55 Daily Weight EMMA 01/27/25 In Process 13:55 Admit ADMIT 01/27/25 Transmitted 13:55 Allergies EMMA 01/27/25 In Process 13:55 Code Status CODE 01/27/25 Transmitted 13:55 Ondansetron Hcl PHA 01/27/25 In Process (Zofran) 14:00 Complete Blood Count LAB 01/28/25 Verified 04:00 Comprehensive LAB 01/28/25 Verified Metabolic Panel 04:00 Cardiac DIET 01/27/25 Transmitted Diet-2gna,Lofat,Lochol Dinner Acetaminophen Tablet PHA 01/27/25 In Process (Tylenol Tablet) 14:00 Sequential EMMA 01/27/25 In Process Compression Device Nitroglycerin PHA 01/27/25 In Process Sublingual (Ntrostat 14:00 Morphine Sulfate PHA 01/27/25 In Process Injection 14:00 Stat Ekg For Chest EMMA 01/27/25 In Process Pain 13:55 Notify Md Of Changes EMMA 01/27/25 In Process From Base 13:55 Dry Curer For EMMA 01/27/25 In Process 24 Hours 13:55 Emergency Dysrhythmia EMMA 01/27/25 In Process Protocol 13:55 Rhythm Strips Once EMMA 01/27/25 In Process Every Shift 13:55 Oxygen By Nasal RT 01/27/25 Transmitted Cannula 13:55 Urinalysis LAB 01/27/25 Logged 13:55 Drug Screen LAB 01/27/25 Logged 13:55 Orthostatic Vital ORDERS 01/27/25 Transmitted Signs 13:55 Carotid Duplx W Color US 01/27/25 Resulted DOP 13:55 Aspirin Enteric PHA 01/28/25 In Process Coated Tablet 10:00 Atorvastatin (Lipitor) PHA 01/27/25 In Process 22:00 Clopidogrel Bisulfate PHA 01/28/25 In Process (Plavix) 10:00 Losartan Tablet PHA 01/28/25 In Process (Cozaar Tablet) 10:00 Carvedilol Tablet PHA 01/27/25 In Process (Coreg Tablet) 22:00 Furosemide Injection PHA 01/28/25 In Process (Lasix Injection) 10:00 Date of Service: Jan 27, 2025 Billing Provider: LINO ROMERO Common Visit Codes: 32884-BPITBWG INP/OBS CARE (HIGH) Secondary Visit Codes: [id number] COUNSELING IND, 37902-VHWSJ CHNG SMOKING >10MIN LINO ROMERO Jan 27, 2025 15:59
[2025-01-27 16:00] VITALS: PULSE 72; RESP 16; O2SAT 97
[2025-01-27 16:19] VITALS: BP 111/73; PULSE 79; RESP 17; TEMP 97.9; O2SAT 97
[2025-01-27] MEDS: PANTOPRAZOLE 40 MG/10 ML VIAL INJ IV SCH (16:49)
[2025-01-27 20:00] VITALS: PULSE 87
[2025-01-27] MEDS: ACETAMINOPHEN 325 MG TAB PO PRN (20:30)
[2025-01-27 21:00] VITALS: BP 128/81; PULSE 86; RESP 19; TEMP 97.9; O2SAT 97
[2025-01-27] MEDS: ATORVASTATIN 20 MG TAB PO SCH (22:22)
[2025-01-27] MEDS: CARVEDILOL 3.125 MG TAB PO SCH (22:22)
[2025-01-27 22:52] LABS: Cocaine Screen, Urine Neg (NEGATIVE)
[2025-01-27 22:53] LABS: Amphetamine Screen, Urine Pos (NEGATIVE); Barbiturate Scree,Urine Neg (NEGATIVE); Benzodiazephine Screen, Urine Neg (NEGATIVE); Cannabinoid Screen, Urine Neg (NEGATIVE); Opiate Scree,Urine Neg (NEGATIVE); Phencyclidine Screen, Urine Neg (NEGATIVE)
[2025-01-28] VITALS (8 sets, daily range): BP systolic 0–131; BP diastolic 76–92; PULSE 71–85; RESP 15–19; TEMP 97.8–98.4; O2SAT 96–99
[2025-01-28 05:48] LABS: Hematocrit 44.7 % (36.0-46.0); Hemoglobin 15.3 g/dL (12.2-16.2); Mean Corpuscular Hemoglobin 32.5 pg (28.0-32.0); Mean Corpuscular Volume 95.0 fL (80.0-100.0); Nucleated Red Blood Cells % 0.0 %
[2025-01-28 05:59] LABS: Albumin 4.0 g/dL (3.2-4.8); Alkaline Phosphatase 103 U/L (46-116); Anion Gap 8 (5-15); BUN/Creatinine Ratio 23.0 (10.0-20.0); Blood Urea Nitrogen 20 mg/dL (9-23); Calcium 9.0 mg/dL (8.7-10.4); Carbon Dioxide 24 mmol/L (20-31); Chloride 107 mmol/L (98-107); Potassium 4.1 mmol/L (3.5-5.1); Sodium 139 mmol/L (136-145); Total Protein 7.1 g/dL (5.7-8.2)
[2025-01-28 06:00] LABS: Bilirubin, Total 0.8 mg/dL (0.2-1.0)
[2025-01-28 06:25] LABS: Alanine Aminotransferase 45 U/L (7-40); Glucose 119 mg/dL (74-106)
[2025-01-28] MEDS: CLOPIDOGREL BISULFATE 75 MG TAB PO SCH (10:22)
[2025-01-28] MEDS: ASPirin-EC 81 mg tab PO SCH (10:22)
[2025-01-28] MEDS: LOSARTAN POTASSIUM 25 MG TAB PO SCH (10:23)
[2025-01-28] MEDS: FUROSEMIDE 40 MG/4 ML VIAL IV SCH (10:24)
[2025-01-28] MEDS: cefTRIAXone 1GM/50ML D5W 50 ML IV SCH (10:24)
--- NOTE | 2025-01-28 13:08 | DVHINCON2 ---
WYATT BRITTON [facility] 01/28/25 1308: Date Seen: Jan 28, 2025 Referring Physician MD Jamee Reason for Consultation "Palpitations" History of Present Illness This is a 54-year-old female patient who presents to the emergency room with chief complaint of syncopal episode. The patient reports that on the night prior to emergency room arrival, while preparing to get in the shower, she began to feel palpitations and then passed out. She states that she hit her head and lost consciousness and is unsure of how long she was unconscious for. She came to the emergency room for further evaluation. Initial twelve lead electrocardiogram reveals normal sinus rhythm with nonspecific ST segment changes and prolonged QTc interval. She denies any chest pain or cardiac symptoms at time of assessment. Initial troponin level of 20ng/L. Significant past medical history includes congestive heart failure, coronary artery disease status post PTCA X 1 DESEAN (on aspirin and Plavix), hypertension, severe pulmonary hypertension, COPD, and polysubstance use. She sees shipping support in the outpatient setting. Past Medical History Past medical history reviewed. No other significant than mentioned above. Past Surgical History Family History: Patient reports no known family medical history. Family History Family history reviewed. Social History Patient toxicology report positive for amphetamines Patient states that she vapes daily Denies any alcohol use Allergies: Coded Allergies: NO KNOWN ALLERGIES (Unverified , 05/18/24) Home Meds Active Scripts Albuterol Sulfate (VENTOLIN MDI) 90 Mcg Ih, 90 MCG IN BID PRN for 30 Days, #2 INH 0 Refills Prov:RYLIE SAGASTUME 12/05/24 Furosemide (Furosemide) 40 Mg Tab, 40 MG PO DAILY for 30 Days, #14 TAB Prov:RYLIE SAGASTUME 12/05/24 Clopidogrel Bisulfate (CLOPIDOGREL) 75 Mg Tab, 75 MG PO DAILY for 30 Days, #30 TAB Prov:RYLIE SAGASTUME 12/05/24 Aspirin (Aspir-Low) 81 Mg Tab, 81 MG PO DAILY for 30 Days, #30 MG Prov:RYLIE SAGASTUME 12/05/24 Losartan Potassium (Losartan Potassium) 25 Mg Tab, 25 MG PO DAILY for 30 Days, #30 MG Prov:RYLIE SAGASTUME 12/05/24 Carvedilol (Carvedilol) 6.25 Mg Tab, 6.25 MG PO Q12HR for 30 Days, #30 MG Prov:NATALIOABDIEL,[facility] 12/05/24 Home Meds Home medications reviewed. Current Medications Current Medications Medications (Trade) Dose Ordered Sig/Hunter Route PRN Reason Start Time Stop Time Status Last Admin Ceftriaxone Sodium 50 ml @ 100 mls/hr DAILY@09 IV 01/28/25 09:00 01/28/25 10:24 Ondansetron HCl (Zofran) 4 mg Q4HP PRN IV NAUSEA / VOMITING 01/27/25 14:00 Acetaminophen (Tylenol Tablet) 650 mg Q6HP PRN PO PAIN SCALE 1-3 OR TEMP>100.4 01/27/25 14:00 01/27/25 20:30 Nitroglycerin (Ntrostat Sublingual) 0.4 mg Q5MINP PRN SL FOR CHEST PAIN 01/27/25 14:00 Morphine Sulfate 2 mg Q30M PRN IV FOR CHEST PAIN 01/27/25 14:00 Aspirin (Ecotrin Enteric Coated Tablet) 81 mg DAILY PO 01/28/25 10:00 01/28/25 10:22 Atorvastatin Calcium (Lipitor) 40 mg HS PO 01/27/25 22:00 01/27/25 22:22 Clopidogrel Bisulfate (Plavix) 75 mg DAILY PO 01/28/25 10:00 01/28/25 10:22 Losartan Potassium (Cozaar Tablet) 25 mg DAILY PO 01/28/25 10:00 01/28/25 10:23 Carvedilol (Coreg Tablet) 6.25 mg Q12HR PO 01/27/25 22:00 01/28/25 10:23 Furosemide (Lasix Injection) 40 mg DAILY IV 01/28/25 10:00 01/28/25 10:24 Pantoprazole Sodium (Protonix) 40 mg DAILY IV 01/27/25 16:00 01/28/25 10:24 Review of Systems Constitutional: No symptom reported Ears, Nose, & Throat: No symptom reported Eyes: No symptom reported Neurological: Syncope Pulmonary/Respiratory: No symptoms reported Cardiovascular: Palpitations Gastrointestinal: No symptom reported Genitourinary: No symptom reported Musculoskeletal: No symptom reported Skin: No symptom reported Psychiatric: No symptom reported Endocrine: No symptom reported Hematologic/Lymphatic: No symptom reported Vital Signs Vital Signs Date Time Temp Pulse Resp B/P (MAP) Pulse Ox O2 Delivery O2 Flow Rate FiO2 01/28/25 10:24 108/79 01/28/25 10:23 79 01/28/25 09:00 98.1 16 96 98.1 01/28/25 08:01 Room Air* 0 21 Physical Exam General Appearance: Cooperative. Well-developed. Well-nourished. No acute distress. Pulmonary/Respiratory: Clear, bilateral breaths sounds. Cardiovascular/Chest: Regular rate and rhythm. Systolic murmur Peripheral Pulses: 2+ Radial (R). 2+ Radial (L). 2+ Pedal (R). 2+ Pedal (L) Abdominal Exam: Normal bowel sounds. Ankle Exam: Negative ankle edema Lower extremities: Negative lower extremity edema Neuro/Mental Status: A/OX4, coherent. Thoughts/Psych: Normal thought pattern. Appropriate mood and affect. Good judgment and insight. Appearance: No acute distress. Skin Exam: Large bruise under left eye. Skin warm and dry Labs/Diagnostic Data Labs Test 01/28/25 05:14 01/27/25 11:54 01/27/25 09:56 01/27/25 08:51 Range/Units White Blood Count 5.8 4.4-10.8 10^3/uL Red Blood Count 4.71 4.0-5.20 10^6/uL Hemoglobin 15.3 12.2-16.2 g/dL Hematocrit 44.7 36.0-46.0 % Mean Corpuscular Volume 95.0 80.0-100.0 fL Mean Corpuscular Hemoglobin 32.5 H 28.0-32.0 pg Mean Corpuscular Hemoglobin Concent 34.2 32.0-36.0 g/dL Red Cell Distribution Width 15.2 H 11.8-14.3 % Platelet Count 204 140-450 10^3/uL Mean Platelet Volume 7.7 6.9-10.8 fL Neutrophils (%) (Auto) 54.3 37.0-80.0 % Lymphocytes (%) (Auto) 29.9 10.0-50.0 % Monocytes (%) (Auto) 11.8 0.0-12.0 % Eosinophils (%) (Auto) 2.8 0.0-7.0 % Basophils (%) (Auto) 1.2 0.0-2.0 % Neutrophils # (Auto) 3.1 1.6-8.6 10 ^3/uL Lymphocytes # (Auto) 1.7 0.4-5.4 10 ^3/uL Monocytes # (Auto) 0.7 0-1.3 10 ^3/uL Eosinophils # (Auto) 0.2 0-0.8 10 ^3/uL Basophils # (Auto) 0.1 0-0.2 10 ^3/uL Nucleated Red Blood Cells 0.0 % Sodium Level 139 136-145 mmol/L Potassium Level 4.1 3.5-5.1 mmol/L Chloride Level 107 98-107 mmol/L Carbon Dioxide Level 24 20-31 mmol/L Anion Gap 8 5-15 Blood Urea Nitrogen 20 9-23 mg/dL Creatinine 0.87 0.550-1.02 mg/dL Glomerular Filtration Rate Calc 79 >90 mL/min BUN/Creatinine Ratio 23.0 H 10.0-20.0 Serum Glucose 119 H 74-106 mg/dL Calcium Level 9.0 8.7-10.4 mg/dL Total Bilirubin 0.8 0.2-1.0 mg/dL Aspartate Amino Transferase (AST) 34 13-40 U/L Alanine Aminotransferase (ALT) 45 H 7-40 U/L Alkaline Phosphatase 103 46-116 U/L Total Protein 7.1 5.7-8.2 g/dL Albumin 4.0 3.2-4.8 g/dL Troponin I High Sensitivity 14 </=34 ng/L Lactic Acid Level 2.2 *H 0.4-2.0 mmol/L Urine Color Colorless Yellow Urine Clarity Clear Clear Urine pH 7.0 5.0-9.0 Urine Specific [place] 1.005 1.001-1.035 Urine Protein Negative Negative Urine Ketones Negative Negative Urine Blood Negative Negative /uL Urine Nitrite Negative Negative Urine Bilirubin Negative Negative Urine Urobilinogen Normal Negative mg/dL Urine Leukocyte Esterase Negative Negative /uL Urine RBC <1 0 - 4 /hpf Urine Microscopic WBC < 1 0-5 /HPF Urine Squamous Epithelial Cells Few <5 /hpf Urine Bacteria None seen None Seen /hpf Urine Glucose Normal Normal mg/dL Urine Opiates Screen Neg NEGATIVE Urine Fentanyl Screen Neg NEGATIVE Urine Barbiturates Screen Neg NEGATIVE Urine Phencyclidine Screen Neg NEGATIVE Urine Amphetamines Screen Pos NEGATIVE Urine Benzodiazepines Screen Neg NEGATIVE Urine Cocaine Screen Neg NEGATIVE Urine Cannabinoids Screen Neg NEGATIVE Test 01/27/25 08:02 Range/Units Magnesium Level 2.0 1.6-2.6 mg/dL Creatine Kinase 67 34-145 U/L B-Type Natriuretic Peptide 761.33 0-100 pg/mL Microbiology Date/Time Source Procedure Growth Status 01/27/25 09:56 Blood Blood Culture - Preliminary NO GROWTH AFTER 24 HOURS OF INCUBATION. Resulted Assessment Syncope, rule out cardiac etiology Chronic HFpEF, NYHA class II Coronary artery disease s/p PTCA x 1 DESEAN (on aspirin and Plavix) Severe tricuspid regurgitation Severe pulmonary hypertension Prolonged QTc interval ? Pneumonia Polysubstance use Medical noncompliance Plan/Recommendation We will continue with the following plan/recommendations (): Case discussed with . Transthoracic echocardiogram from 12/06/2024 reveals an EF of 55% with severe tricuspid regurgitation and RVSP 130mmHg. At the time of assessment, the patient is in normal sinus rhythm and denies any cardiac symptoms. Bilateral carotid ultrasound negative for stenosis in left or right carotid system. Of note, the patient's home medications reveal Entresto and losartan, which the patient states that she was taking together. We will recommend to discontinue one medication as both contain ARB. Also avoid medications that prolong QTC interval. The patient also mentions that she has not been compliant with her antiplatelet therapy for the last couple of days. The patient has been extensively educated on the importance of continuing her dual antiplatelet therapy for her recent stent placement as she is at high risk for InStent restenosis/thrombosis and/or even . Had a long discussion with the patient regarding positive toxicology screen for amphetamines. Patient states that she will stop using drugs. The patient will also need an outpatient referral to pulmonology for PAH evaluation. There is no further inpatient cardiac workup indicated at this time. The patient will follow up with in the outpatient setting. Thank you for allowing us to care for this patient. Please call with any questions or concerns. Critical care time spent: 44 minutes This medical document was created using an electronic medical record system with voice recognition software and computerized dictation system. Although this document has been carefully reviewed, there might still be some phonetic and typographical errors. Occasional wrong-word or ``sound-alike substitutions may have occurred due to the inherent limitations of voice recognition software. These areas are purely typographical due to imperfections of the software programs and do not reflect any compromise in the patient's medical care. Please read the chart carefully and recognize, using context, where these substitutions have occurred. Plan discussed with: Patient NYHA Physical activity limitations: Class2(Slight)fatigue,sob (palpitatns, angina w activityv) Date of Service: Jan 28, 2025 Billing Provider: WYATT BRITTON Cardiology Common Codes: [id number] INP/OBS CARE (High) Cardiology Consultation Codes: [id number] CONSULT <45MIN PEGGY MAGANA MD 01/29/25 0654: Family History: Patient reports no known family medical history. Allergies: Coded Allergies: NO KNOWN ALLERGIES (Unverified , 05/18/24) Home Meds Active Scripts Albuterol Sulfate (VENTOLIN MDI) 90 Mcg Ih, 90 MCG IN BID PRN for 30 Days, #2 INH 0 Refills Prov:RYLIE SAGASTUME 12/05/24 Furosemide (Furosemide) 40 Mg Tab, 40 MG PO DAILY for 30 Days, #14 TAB Prov:RYLIE SAGASTUME 12/05/24 Clopidogrel Bisulfate (CLOPIDOGREL) 75 Mg Tab, 75 MG PO DAILY for 30 Days, #30 TAB Prov:RYLIE SAGASTUME 12/05/24 Aspirin (Aspir-Low) 81 Mg Tab, 81 MG PO DAILY for 30 Days, #30 MG Prov:RYLIE SAGASTUME 12/05/24 Losartan Potassium (Losartan Potassium) 25 Mg Tab, 25 MG PO DAILY for 30 Days, #30 MG Prov:RYLIE SAGASTUME 12/05/24 Carvedilol (Carvedilol) 6.25 Mg Tab, 6.25 MG PO Q12HR for 30 Days, #30 MG Prov:RYLIE SAGASTUME 12/05/24 Plan/Recommendation TOTALLY NON COMPLIANT PT SP HIGH RISK PCI TO OSTIAL PROX LAD WITH ME IN JUN 2024 ACTIVE DRUG ABUSE SEVERE PULM HTN HIGH RISK FOR CARDIAC ARREST / PT IS AWARE WYATT BRITTON Jan 28, 2025 13:08 PEGGY MAGANA MD Jan 29, 2025 06:54
[2025-01-28] MEDS ORDERED: AZITHROMYCIN 500MG/ 250ML 250 ML IV ONE (17:45)
--- NOTE | 2025-01-28 17:45 | DVHPN2 ---
Subjective Patient denies any chest pain palpitations. Reviewed: Care Plan Changes from previous H/P or p: No Changes Cardiovascular: Palpitations Objective Vitals Vital Signs Date Time Temp Pulse Resp B/P (MAP) Pulse Ox O2 Delivery O2 Flow Rate FiO2 01/28/25 16:48 98.1 74 18 121/86 (98) 96 98.1 001/28/25 08:01 Room Air* 0 21 Intake/Output Intake and Output 01/28/25 07:00 Intake Total 1925 ml Output Total 0 ml Balance 1925 ml Intake Oral 1925 ml Output Urine Total 0 ml # Voids 6 # Bowel Movements 1 Exam HEENT pupils are reactive Neck is supple CV is S1-S2 regular rate and rhythm Respiratory are clear GI positive bowel sound Extremity no edema [employer] no motor deficit Medications Current Medications Medications Dose Ordered Sig/Hunter Route Start Time Stop Time Status Last Admin Dose Admin Ceftriaxone Sodium 50 ml @ 100 mls/hr DAILY@09 IV 01/28/25 09:00 01/28/25 10:24 100 MLS/HR Ondansetron HCl 4 mg Q4HP PRN IV 01/27/25 14:00 Acetaminophen 650 mg Q6HP PRN PO 01/27/25 14:00 01/27/25 20:30 650 MG Nitroglycerin 0.4 mg Q5MINP PRN SL 01/27/25 14:00 Morphine Sulfate 2 mg Q30M PRN IV 01/27/25 14:00 Aspirin 81 mg DAILY PO 01/28/25 10:00 01/28/25 10:22 81 MG Atorvastatin Calcium 40 mg HS PO 01/27/25 22:00 01/27/25 22:22 40 MG Clopidogrel Bisulfate 75 mg DAILY PO 01/28/25 10:00 01/28/25 10:22 75 MG Losartan Potassium 25 mg DAILY PO 01/28/25 10:00 01/28/25 10:23 25 MG Carvedilol 6.25 mg Q12HR PO 01/27/25 22:00 01/28/25 10:23 6.25 MG Furosemide 40 mg DAILY IV 01/28/25 10:00 01/28/25 10:24 40 MG Pantoprazole Sodium 40 mg DAILY IV 01/27/25 16:00 01/28/25 10:24 40 MG Azithromycin 250 ml @ 125 mls/hr DAILY IV 01/29/25 10:00 UNV Laboratory Results Laboratory Tests 01/28/25 05:14 Chemistry Test 01/28/25 05:14 Albumin 4.0 g/dL (3.2-4.8) Calcium Level 9.0 mg/dL (8.7-10.4) Total Protein 7.1 g/dL (5.7-8.2) LFT Test 01/28/25 05:14 Alanine Aminotransferase (ALT) 45 U/L (7-40) H Alkaline Phosphatase 103 U/L (46-116) Aspartate Amino Transferase (AST) 34 U/L (13-40) Total Bilirubin 0.8 mg/dL (0.2-1.0) Urinalysis Test 01/27/25 08:51 Urine Color Colorless (Yellow) Urine Clarity Clear (Clear) Urine pH 7.0 (5.0-9.0) Urine Specific [place] 1.005 (1.001-1.035) Urine Protein Negative (Negative) Urine Ketones Negative (Negative) Urine Blood Negative /uL (Negative) Urine Nitrite Negative (Negative) Urine Bilirubin Negative (Negative) Urine Urobilinogen Normal mg/dL (Negative) Urine Leukocyte Esterase Negative /uL (Negative) Urine RBC <1 /hpf (0 - 4) Urine Microscopic WBC < 1 /HPF (0-5) Urine Squamous Epithelial Cells Few /hpf (<5) Urine Bacteria None seen /hpf (None Seen) Urine Glucose Normal mg/dL (Normal) Microbiology Microbiology Date/Time Source Procedure Growth Status 01/27/25 09:56 Blood Blood Culture - Preliminary NO GROWTH AFTER 24 HOURS OF INCUBATION. Resulted Assessment/Plan Assessment/Plan 64-year-old female with a history of coronary artery disease status post PCI, tricuspid regurgitation, severe pulmonary hypertension, chronic congestive heart failure initially presented to the hospital with syncope chest pain and palpitation found to have 1. Syncope suspect secondary to drug use 2. Chest pain and palpitation ruled out acute CA 3. CAD status post PCI 4. Chronic congestive heart failure unspecified 5. Suspected left-sided pneumonia 6. Substance abuse disorder 7. Severe pulmonary hypertension 8. Prolonged QTC, -continue IV antibiotics, cardiology consultation, discharge plan. Plan discussed with: Patient My Orders Orders - ALEC FINE MD Procedure Category Date Status Time *Consult Dr. Soliman CONS 01/28/25 Transmitted 10:42 Azithromycin 500mg/ PHA 01/28/25 Logged 250ml (Zithromax 50 17:45 Azithromycin 500mg/ PHA 01/29/25 Logged 250ml (Zithromax 50 10:00 Date of Service: Jan 28, 2025 Billing Provider: ALEC FINE MD Common Visit Codes: [id number] INP/OBS CARE(MOD) ALEC FINE MD Jan 28, 2025 17:45
[2025-01-29 01:00] VITALS: BP 126/56; PULSE 82; RESP 19; TEMP 98.3; O2SAT 95
[2025-01-29 05:00] VITALS: BP 119/86; PULSE 69; RESP 16; TEMP 97.5; O2SAT 97
--- NOTE | 2025-01-29 06:38 | ECG ---
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
[2025-01-29 08:00] VITALS: PULSE 67
[2025-01-29 08:02] VITALS: BP 124/87; PULSE 68; RESP 20; TEMP 98.1; O2SAT 94
[2025-01-29] MEDS ORDERED: AZITHROMYCIN 500MG/ 250ML 250 ML IV SCH (10:00)
--- NOTE | 2025-01-29 16:13 | DVHDS2 ---
Discharge Summary Date of Admission Jan 27, 2025 at 13:55 Date of Discharge: Jan 29, 2025 Labs/Diagnostic Data: Laboratory Results Test 01/28/25 14:44 01/28/25 05:14 01/27/25 11:54 01/27/25 08:51 Lactic Acid Level 1.0 mmol/L (0.4-2.0) White Blood Count 5.8 10^3/uL (4.4-10.8) Red Blood Count 4.71 10^6/uL (4.0-5.20) Hemoglobin 15.3 g/dL (12.2-16.2) Hematocrit 44.7 % (36.0-46.0) Mean Corpuscular Volume 95.0 fL (80.0-100.0) Mean Corpuscular Hemoglobin 32.5 pg (28.0-32.0) Mean Corpuscular Hemoglobin Concent 34.2 g/dL (32.0-36.0) Red Cell Distribution Width 15.2 % (11.8-14.3) Platelet Count 204 10^3/uL (140-450) Mean Platelet Volume 7.7 fL (6.9-10.8) Neutrophils (%) (Auto) 54.3 % (37.0-80.0) Lymphocytes (%) (Auto) 29.9 % (10.0-50.0) Monocytes (%) (Auto) 11.8 % (0.0-12.0) Eosinophils (%) (Auto) 2.8 % (0.0-7.0) Basophils (%) (Auto) 1.2 % (0.0-2.0) Neutrophils # (Auto) 3.1 10 ^3/uL (1.6-8.6) Lymphocytes # (Auto) 1.7 10 ^3/uL (0.4-5.4) Monocytes # (Auto) 0.7 10 ^3/uL (0-1.3) Eosinophils # (Auto) 0.2 10 ^3/uL (0-0.8) Basophils # (Auto) 0.1 10 ^3/uL (0-0.2) Nucleated Red Blood Cells 0.0 % Sodium Level 139 mmol/L (136-145) Potassium Level 4.1 mmol/L (3.5-5.1) Chloride Level 107 mmol/L (98-107) Carbon Dioxide Level 24 mmol/L (20-31) Anion Gap 8 (5-15) Blood Urea Nitrogen 20 mg/dL (9-23) Creatinine 0.87 mg/dL (0.550-1.02) Glomerular Filtration Rate Calc 79 mL/min (>90) BUN/Creatinine Ratio 23.0 (10.0-20.0) Serum Glucose 119 mg/dL (74-106) Calcium Level 9.0 mg/dL (8.7-10.4) Total Bilirubin 0.8 mg/dL (0.2-1.0) Aspartate Amino Transferase (AST) 34 U/L (13-40) Alanine Aminotransferase (ALT) 45 U/L (7-40) Alkaline Phosphatase 103 U/L (46-116) Total Protein 7.1 g/dL (5.7-8.2) Albumin 4.0 g/dL (3.2-4.8) Troponin I High Sensitivity 14 ng/L (</=34) Urine Color Colorless (Yellow) Urine Clarity Clear (Clear) Urine pH 7.0 (5.0-9.0) Urine Specific [place] 1.005 (1.001-1.035) Urine Protein Negative (Negative) Urine Ketones Negative (Negative) Urine Blood Negative /uL (Negative) Urine Nitrite Negative (Negative) Urine Bilirubin Negative (Negative) Urine Urobilinogen Normal mg/dL (Negative) Urine Leukocyte Esterase Negative /uL (Negative) Urine RBC <1 /hpf (0 - 4) Urine Microscopic WBC < 1 /HPF (0-5) Urine Squamous Epithelial Cells Few /hpf (<5) Urine Bacteria None seen /hpf (None Seen) Urine Glucose Normal mg/dL (Normal) Urine Opiates Screen Neg (NEGATIVE) Urine Fentanyl Screen Neg (NEGATIVE) Urine Barbiturates Screen Neg (NEGATIVE) Urine Phencyclidine Screen Neg (NEGATIVE) Urine Amphetamines Screen Pos (NEGATIVE) Urine Benzodiazepines Screen Neg (NEGATIVE) Urine Cocaine Screen Neg (NEGATIVE) Urine Cannabinoids Screen Neg (NEGATIVE) Test 01/27/25 08:02 Magnesium Level 2.0 mg/dL (1.6-2.6) Creatine Kinase 67 U/L (34-145) B-Type Natriuretic Peptide 761.33 pg/mL (0-100) Other Laboratory Tests 01/28/25 05:14 Brief Hx & Hospital Course: 64-year-old female with a history of coronary artery disease status post PCI, tricuspid regurgitation, severe pulmonary hypertension, chronic congestive heart failure initially presented to the hospital with syncope chest pain and palpitation found to have syncope suspected secondary to methamphetamine use. Patient does have known history of CAD status post PCI. Patient's has a noncompliance to the medication as well. Patient was being treated for suspected pneumonia. Patient left against medical advice before completion of workup and treatment. , Condition at Discharge: Undetermined Final Diagnosis/Problems List 64-year-old female with a history of coronary artery disease status post PCI, tricuspid regurgitation, severe pulmonary hypertension, chronic congestive heart failure initially presented to the hospital with syncope chest pain and palpitation found to have 1. Syncope suspect secondary to drug use 2. Chest pain and palpitation ruled out acute MT 3. CAD status post PCI 4. Chronic congestive heart failure unspecified 5. Suspected left-sided pneumonia 6. Substance abuse disorder 7. Severe pulmonary hypertension 8. Prolonged QTC, Discharge Disposition: AMA SNF Discharge Will this Physician continue t: No Discharge Instruct/Medications Scheduled Aspirin (Aspir-Low), 81 MG PO DAILY Carvedilol (Carvedilol), 6.25 MG PO Q12HR Clopidogrel Bisulfate (Clopidogrel), 75 MG PO DAILY Furosemide (Furosemide), 40 MG PO DAILY Losartan Potassium (Losartan Potassium), 25 MG PO DAILY Scheduled PRN Albuterol Sulfate (Ventolin Mdi), 90 MCG IN BID PRN Discharge Statement: "Patient was advised to return to the ER or call 911 if any headaches, dizziness, shortness of breath, chest pain, abdominal pain, bleeding, fevers, or worsening of medical condition. Patient was counseled about treatment plan, medications, possible side effects, patientverbalized understanding. All questions were answered to the best of my ability. This discharge took greater then 30 minutes in planning, reviewing documentation, counseling the patient, and discussing with other team members." ASSESSMENT ASSESSMENT Assessment Date of Service: Jan 29, 2025 Billing Provider: ALEC FINE MD Common Visit Codes: [id number] DISCH DAY >30min ALEC FINE MD Jan 29, 2025 16:13
== END 2025-01-29 10:40 | disposition left against medical advice (07) | DRG 194 ==
LOC: ER 07:13 → OVERFLOW 13:55 → TELE-EAST 15:19
DX: I11.0 Hypertensive heart disease with heart failure (principal); J15.69 Pneumonia due to other Gram-negative bacteria; E87.20 Acidosis, unspecified; I27.20 Pulmonary hypertension, unspecified; J15.9 Unspecified bacterial pneumonia; J44.0 Chronic obstructive pulmonary disease with (acute) lower respiratory infection; F19.10 Other psychoactive substance abuse, uncomplicated; I50.43 Acute on chronic combined systolic (congestive) and diastolic (congestive) heart failure; I07.1 Rheumatic tricuspid insufficiency; S05.12XA Contusion of eyeball and orbital tissues, left eye, initial encounter; E87.6 Hypokalemia; M47.812 Spondylosis without myelopathy or radiculopathy, cervical region; E80.6 Other disorders of bilirubin metabolism; I25.5 Ischemic cardiomyopathy; F17.290 Nicotine dependence, other tobacco product, uncomplicated; I25.10 Atherosclerotic heart disease of native coronary artery without angina pectoris; R94.31 Abnormal electrocardiogram [ECG] [EKG]; Z53.29 Procedure and treatment not carried out because of patient's decision for other reasons; Z98.891 History of uterine scar from previous surgery; Z95.5 Presence of coronary angioplasty implant and graft; Z91.148 Patient's other noncompliance with medication regimen for other reason; X58.XXXA Exposure to other specified factors, initial encounter; Y93.89 Activity, other specified; Y92.89 Other specified places as the place of occurrence of the external cause; Y99.8 Other external cause status
CPT/HCPCS: 36415; 70450; 71045; 72125; 80053; 80307; 81001; 82550; 83605; 83735; 83880; 84484; 85025; 87040; 93005; 93886; G0378; J2470

== ENCOUNTER 2025-05-28 12:03 | Inpatient (IN) | payer MEDICAID ==
[~2025-05-28] VITALS: Ht 154.9 cm; Wt 60.8 kg
[~2025-05-28 12:03] MED LIST changes: -ATOR20TA50 PO
--- NOTE | 2025-05-28 12:50 | ED.PDOC ---
HPI Comments 54 y.o female with PMHx of CHF, COPD and HTN, presents to the ED for a chief complaint of substernal chest pain associated with SOB and total body swelling that started 1 week ago. Patient has swelling on upper, lower extremities face and abdomen. Patient reports running out of her medication 1 month ago and has not been able to contact PCP for a assessment. Patient denies any fever, chills, nausea, vomiting. Chief Complaint: Shortness of Breath Time Seen by MD: 12:29 Primary Care Provider: BETHEL Reviewed Notes: Nurses Notes, Medications, Allergies Allergies: Coded Allergies: NO KNOWN ALLERGIES (Unverified , 05/18/24) Home Meds Active Scripts Albuterol Sulfate (VENTOLIN MDI) 90 Mcg Ih, 90 MCG IN BID PRN for 30 Days, #2 INH 0 Refills Prov:RYLIE SAGASTUME 12/05/24 Furosemide (Furosemide) 40 Mg Tab, 40 MG PO DAILY for 30 Days, #14 TAB Prov:RYLIE SAGASTUME 12/05/24 Clopidogrel Bisulfate (CLOPIDOGREL) 75 Mg Tab, 75 MG PO DAILY for 30 Days, #30 TAB Prov:RYLIE KITCHEN [facility] 12/05/24 Aspirin (Aspir-Low) 81 Mg Tab, 81 MG PO DAILY for 30 Days, #30 MG Prov:RYLIE SAGASTUME 12/05/24 Losartan Potassium (Losartan Potassium) 25 Mg Tab, 25 MG PO DAILY for 30 Days, #30 MG Prov:RYLIE KITCHEN [facility] 12/05/24 Carvedilol (Carvedilol) 6.25 Mg Tab, 6.25 MG PO Q12HR for 30 Days, #30 MG Prov:RYLIE KITCHEN [facility] 12/05/24 Information Source: Patient Mode of Arrival: Ambulatory Severity: Moderate Timing: Weeks (1) Duration: Since onset Location: Substernal Radiation: No Radiation Quality: Sharp Onset: At Rest Cardiac Risk Factors: HTN History of: None Modifying Factors: Nothing Associated Signs and Symptoms: SOB, Other Past Medical History PAST MEDICAL HISTORY: CHF, COPD, HTN Surgical History: MANAGER IMAGE History: Denies all MANAGER IMAGE Hx Family History Family History: Unknown Social History Smoker: Non-Smoker, Other Alcohol: Denies ETOH Use Drugs: Denies Drug Use Lives In: Home Constitutional: denies: chills, diaphoresis, fatigue, fever, malaise, sweats, weakness, others EENTM: denies: blurred vision, double vision, ear bleeding, ear discharge, ear drainage, ear pain, ear ringing, eye pain, eye redness, hearing loss, mouth pain, mouth swelling, nasal discharge, nose bleeding, nose congestion, nose pain, photophobia, tearing, throat pain, throat swelling, voice changes, others Respiratory: reports: SOB at rest, shortness of breath, SOB with excertion; denies: cough, hemoptysis, orthopnea, stridor, wheezing, others Cardiovascular: reports: chest pain; denies: dizzy spells, diaphoresis, Dyspnea on exertion, edema, irregular heart beat, left arm pain, lightheadedness, palpitations, PND, syncope, others Gastrointestinal: denies: abdomen distended, abdominal pain, blood streaked bowels, constipated, diarrhea, dysphagia, difficulty swallowing, hematemesis, melena, nausea, poor appetite, poor fluid intake, rectal bleeding, rectal pain, vomiting, others Genitourinary: denies: abnormal vagina bleeding, burning, dyspareunia, dysuria, flank pain, frequency, hematuria, incontinence, pain, , vagina discharge, urgency, others Neurological: denies: dizziness, fainting, headache, left sided numbness, left sided weakness, numbness, paresthesia, pre-existing deficit, right sided numbness, right sided weakness, seizure, speech problems, tingling, tremors, weakness, others Musculoskeletal: denies: back pain, gout, joint pain, joint swelling, muscle pain, muscle stiffness, neck pain, others Integumetry: reports: others (total body swelling ); denies: bruises, change in color, change in hair/nails, dryness, laceration, lesions, lumps, rash, wounds Allergic/Immunocompromised: denies: Difficulty Healing, Frequent Infections, Hives, Itching, others Hematologic/Lymphatic: denies: anemia, blood clots, easy bleeding, easy bruising, swollen glands, others Endocrine: denies: excessive hunger, excessive sweating, excessive thirst, excessive urination, flushing, intolerance to cold, intolerance to heat, unexplained weight gain, unexplained weight loss, others Psychiatric: denies: anxiety, bipolar disorder, depression, hopeless, panic disorder, schizophrenia, sleepless, suicidal, others All Other Systems: Reviewed and Negative Physical Exam General Appearance: Moderate Distress HEENT: Normal ENT Inspection, Pharynx Normal, TMs Normal Neck: Full Range of Motion, Non-Tender, Normal, Normal Inspection Respiratory: Other (Coarse breath sounds) Cardiovascular: No Edema, No JVD, No Murmur, No Gallop, Normal Peripheral Pulses, Regular Rate/Rhythm Breast Exam: Deferred Gastrointestinal: No Organomegaly, Non Tender, No Pulsatile Mass, Normal Bowel Sounds, Soft Genitalia: Deferred Pelvic: Deferred Rectal: Deferred Extremities: Swelling (Bilateral lower extremity) Musculoskeletal : Apperance: Normal Neurologic: Alert, chef passenger vessel II-XII nml as Tested, No Motor Deficits, Normal Affect, Normal Mood, No Sensory Deficits Cerebellar Function: Normal Reflexes: Normal Skin: Dry, Normal Color, Warm Peripheral Pulses: 3+ Radial (R), 3+ Radial (L) Lymphatic: No Adenopathy EKG EKG : Pulse Rate (adult): 87 Cardiac Rhythm: NSR Was a procedure done? 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: Attending Physician Indication: Hypotension, Volume resuscitation Room prepared for procedure: Yes Medical Unit Secretary performed hand hygien: Yes Maximal sterile barrier precau: Mask/Eye shield, Sterile gown, Cap, Sterlie gloves, Large sterlie drape Skin Preparation: Chlorhexidine gluconate, Alcohol Skin preparation completely dr: Yes Insertion site: Right, Femoral Central line catheter type: Ruv-popeyxwa-llt dialysis Number of lumens: 3 Central line exchanged over a: No Antiseptic ointment applied to: No Post Assessment: Chest X-Ray, Proper placement Informed consent obtained: No Risks/benefits/alt described: No Intubation Indication: Respiratory Insufficiency, Altered Mental Status Prep: Preoxygenation Pretreated with: Nothing Medicated with: Other (100mg rocuronium; 20mg etomidate) Intubation Approach: Orotracheal (8.0) Intubation size: cm (23 at the lip) Informed consent obtained: No Risks/benefits/alt described: No CP Differential Dx Differential Diagnosis: A-fib, A-Flutter, Angina, Anxiety / Panic Attack, Atrial Dysrhythmia, Electrolyte Disorder, N/A Differential Diagnosis: CHF, Medical NonCompliance Differential Diagnosis: Angina, Chest Wall Pain, Cholelithiasis, Costochondritis, Pericarditis X-Ray, Labs, Meds, VS Vital Signs Date Time Temp Pulse Resp B/P (MAP) Pulse Ox O2 Delivery O2 Flow Rate FiO2 05/28/25 14:36 149/104 05/28/25 14:13 98.1 87 18 149/104 (119) 97 98.1 05/28/25 14:13 87 18 97 Room Air 05/28/25 12:50 87 05/28/25 12:10 87 05/28/25 12:03 97.4 90 18 169/115 95 97.4 Lab Test 05/28/25 13:32 05/28/25 12:52 Range/Units Urine Color Yellow Yellow Urine Clarity Clear Clear Urine pH 6.0 5.0-9.0 Urine Specific [place] 1.016 1.001-1.035 Urine Protein Trace H Negative Urine Ketones Negative Negative Urine Blood Negative Negative /uL Urine Nitrite Negative Negative Urine Bilirubin Negative Negative Urine Urobilinogen 2 H Negative mg/dL Urine Leukocyte Esterase Negative Negative /uL Urine RBC 2 0 - 4 /hpf Urine Microscopic WBC 2 0-5 /HPF Urine Squamous Epithelial Cells Few <5 /hpf Urine Bacteria None seen None Seen /hpf Urine Glucose Normal Normal mg/dL Urine Opiates Screen Pending Urine Fentanyl Screen Pending Urine Barbiturates Screen Pending Urine Phencyclidine Screen Pending Urine Amphetamines Screen Pending Urine Benzodiazepines Screen Pending Urine Cocaine Screen Pending Urine Cannabinoids Screen Pending White Blood Count 6.9 4.4-10.8 10^3/uL Red Blood Count 4.66 4.0-5.20 10^6/uL Hemoglobin 14.9 12.2-16.2 g/dL Hematocrit 45.4 36.0-46.0 % Mean Corpuscular Volume 97.5 80.0-100.0 fL Mean Corpuscular Hemoglobin 32.1 H 28.0-32.0 pg Mean Corpuscular Hemoglobin Concent 32.9 32.0-36.0 g/dL Red Cell Distribution Width 14.1 11.8-14.3 % Platelet Count 194 140-450 10^3/uL Mean Platelet Volume 7.5 6.9-10.8 fL Neutrophils (%) (Auto) 70.4 37.0-80.0 % Lymphocytes (%) (Auto) 18.8 10.0-50.0 % Monocytes (%) (Auto) 8.2 0.0-12.0 % Eosinophils (%) (Auto) 1.8 0.0-7.0 % Basophils (%) (Auto) 0.8 0.0-2.0 % Neutrophils # (Auto) 4.8 1.6-8.6 10 ^3/uL Lymphocytes # (Auto) 1.3 0.4-5.4 10 ^3/uL Monocytes # (Auto) 0.6 0-1.3 10 ^3/uL Eosinophils # (Auto) 0.1 0-0.8 10 ^3/uL Basophils # (Auto) 0.1 0-0.2 10 ^3/uL Nucleated Red Blood Cells 0.0 % Sodium Level 142 136-145 mmol/L Potassium Level 4.2 3.5-5.1 mmol/L Chloride Level 109 H 98-107 mmol/L Carbon Dioxide Level 25 20-31 mmol/L Anion Gap 8 5-15 Blood Urea Nitrogen 9 9-23 mg/dL Creatinine 0.79 0.550-1.02 mg/dL Glomerular Filtration Rate Calc 88 >90 mL/min BUN/Creatinine Ratio 11.4 10.0-20.0 Serum Glucose 72 L 74-106 mg/dL Calcium Level 9.0 8.7-10.4 mg/dL Troponin I High Sensitivity 16 </=34 ng/L B-Type Natriuretic Peptide 1063.95 0-100 pg/mL Current Medications Medications (Trade) Dose Ordered Sig/Hunter Route Start Time Stop Time Status Last Admin Furosemide (Lasix Injection) 40 mg ONCE ONCE IV 05/28/25 12:45 05/28/25 12:46 DC 05/28/25 14:36 Ceftriaxone Sodium 50 ml @ 100 mls/hr DAILY IV 05/28/25 15:45 05/28/25 16:33 Azithromycin 250 ml @ 125 mls/hr DAILY IV 05/28/25 15:45 05/28/25 16:[address] [address] Ph: [phone] DIAGNOSTIC IMAGING Diagnostic Imaging Report : [id number] Signed PATIENT: JAIR PARR ACCT: [id number] UNIT: [id number] : 1970 LOC: ER ROOM / BED: / AGE / SEX: 54 / F ADM STATUS: REG ER SERVICE 1238 ORDERING PHYSICIAN: WILLIE RYDER MD PROCEDURE(s): CXRP - CHEST PORTABLE REASON: sob ORDER NUMBER(s): [id number], ACCESSION NUMBER(s): [id number] CHEST RADIOGRAPH Indication: sob Technique: Single frontal view of the chest was obtained Comparison: XY CHEST PORTABLE on DOS: 01/27/25, XY CHEST PORTABLE on DOS: 12/03/24 FINDINGS: Lines and Tubes: None Lungs: Obscuration of the left hemidiaphragm with left basilar opacity. No effusion. No pneumothorax. Cardiomediastinal contours: [id number] cardiomegaly, unchanged. Bones: No acute osseous abnormality. IMPRESSION: Left basilar opacity which may represent pneumonia/ atelectasis. ATED BY: NEGAR CHEUNG DO DICTATED DATE/TIME: 05/28/251317 SIGNED BY: NEGAR CHEUNG DO SIGNED DATE/TIME: 05/28/251317 CC: Patient alert. Vitals stable. BNP elevated. Cardiac marker within normal limits. Was given Lasix. WBC within normal limits. Hemoglobin within normal limits. Explained to the patient. Continue monitoring. Time of 1ST Reevaluation: 12:47 Reevaluation 1ST: Unchanged Patient Education/Counseling: Diagnosis, Treatment, Prognosis Family Education/Counseling: No Family Present SEPSIS Sepsis Screen Date sepsis recognized/suspect: May 28, 2025 Time Sepsis recognized/suspect: 1205 Recent Procedure: No On Antibiotic Therapy: No Respiratory Rate >20: No Heart Rate >90: No Temp<36 C (96.8 F) or >38.3 C: No SBP <90 or MAP <65 mmHG: No New Acute Mental Status Change: No Is the patient on CPAP, BIPAP,: No Physician Orders Chest Portable (05/28/25 12:38) Admit (05/28/25 15:40) Code Status (05/28/25 15:40) Sodium Chloride Lock (Saline Lock Ns) (05/28/25 22:00) Hydrocodone-Acet 5/325mg Tab (Christine 5/32 (05/28/25 15:45) Complete Blood Count (05/29/25 04:00) Comprehensive Metabolic Panel (05/29/25 04:00) Cardiac Diet-2gna,Lofat,Lochol (05/28/25 Dinner) Acetaminophen Tablet (Tylenol Tablet) (05/28/25 15:45) Nitroglycerin Sublingual (Ntrostat Subli (05/28/25 15:45) Morphine Sulfate Injection (05/28/25 15:45) Oxygen By Nasal Cannula (05/28/25 15:40) Stat Ekg For Chest Pain (05/28/25 15:40) Notify Md Of Changes From Base (05/28/25 15:40) Campus Recruiter For 24 Hours (05/28/25 15:40) Emergency Dysrhythmia Protocol (05/28/25 15:40) Rhythm Strips Once Every Shift (05/28/25 15:40) Aspirin Enteric Coated Tablet (Ecotrin E (05/29/25 10:00) Clopidogrel Bisulfate (Plavix) (05/29/25 10:00) Losartan Tablet (Cozaar Tablet) (05/29/25 10:00) Carvedilol Tablet (Coreg Tablet) (05/28/25 18:00) Furosemide Injection (Lasix Injection) (05/28/25 18:00) Ceftriaxone 1gm/50ml (Rocephin) (05/28/25 15:45) Azithromycin 500mg/ 250ml (Zithromax 50 (05/28/25 15:45) Vital Signs Date Time Temp Pulse Resp B/P (MAP) Pulse Ox O2 Delivery O2 Flow Rate FiO2 05/28/25 14:36 149/104 05/28/25 14:13 98.1 87 18 149/104 (119) 97 98.1 05/28/25 14:13 87 18 97 Room Air 05/28/25 12:50 87 05/28/25 12:10 87 05/28/25 12:03 97.4 90 18 169/115 95 97.4 Laboratory Tests Test 05/28/25 12:52 White Blood Count 6.9 10^3/uL (4.4-10.8) Medications Medications Dose Ordered Sig/Hunter Route Start Time Stop Time Status Last Admin Dose Admin Azithromycin 250 ml @ 125 mls/hr DAILY IV 05/28/25 15:45 05/28/25 16:33 Ceftriaxone Sodium 50 ml @ 100 mls/hr DAILY IV 05/28/25 15:45 05/28/25 16:33 Furosemide 40 mg ONCE ONCE IV 05/28/25 12:45 05/28/25 12:46 DC 05/28/25 14:36 Departure 1 Departure Time of Disposition: 14:53 Impression: Primary Impression: CHF exacerbation Qualified Codes: I50.43 - Acute on chronic combined systolic (congestive) and diastolic (congestive) heart failure Disposition: ADMITTED INPATIENT Admit to: Med Surg Condition: Guarded Critical Care Note Critical Care Time?: Yes (90 min-critical care time only) Stability Stability form required: No Heart Score Heart Score: Heart Score Response (Comments) Value History Moderate Suspicious 1 EKG Normal 0 Age 45-64 1 Risk Factors >3 or Hx ASHD 2 Troponin Normal limit 0 Total 4 I personally scribed for WILLIE RYDER MD ([email or web address]) on 05/28/25 at 12:50. Electronically submitted by Renetta Madden ([email or web address]). I personally scribed for WILLIE RYDER MD ([email or web address]) on 05/28/25 at 14:56. Electronically submitted by Keven Rodriguez ([email or web address]). I personally scribed for WILLIE RYDER MD ([email or web address]) on 05/28/25 at 18:17. Electronically submitted by Keven Rodriguez ([email or web address]). WILLIE RYDER MD May 28, 2025 12:50
[2025-05-28 13:10] LABS: Hematocrit 45.4 % (36.0-46.0); Hemoglobin 14.9 g/dL (12.2-16.2); Mean Corpuscular Hemoglobin 32.1 pg (28.0-32.0); Mean Corpuscular Volume 97.5 fL (80.0-100.0); Nucleated Red Blood Cells % 0.0 %
[2025-05-28 13:16] LABS: Potassium 4.2 mmol/L (3.5-5.1); Sodium 142 mmol/L (136-145)
[2025-05-28 13:17] LABS: Anion Gap 8 (5-15); Calcium 9.0 mg/dL (8.7-10.4); Carbon Dioxide 25 mmol/L (20-31)
[2025-05-28 13:18] LABS: Chloride 109 mmol/L (98-107)
--- NOTE | 2025-05-28 13:20 | DVH ---
CHEST RADIOGRAPH Indication: sob Technique: Single frontal view of the chest was obtained Comparison: XY CHEST PORTABLE on DOS: 01/27/25, XY CHEST PORTABLE on DOS: 12/03/24 FINDINGS: Lines and Tubes: None Lungs: Obscuration of the left hemidiaphragm with left basilar opacity. No effusion. No pneumothorax. Cardiomediastinal contours: [id number] cardiomegaly, unchanged. Bones: No acute osseous abnormality. IMPRESSION: Left basilar opacity which may represent pneumonia/ atelectasis.
[2025-05-28 13:22] LABS: BUN/Creatinine Ratio 11.4 (10.0-20.0); Blood Urea Nitrogen 9 mg/dL (9-23)
[2025-05-28 13:42] LABS: Glucose 72 mg/dL (74-106)
--- NOTE | 2025-05-28 14:32 | ECG ---
[facility] Test Date: 2025-05-28 Test Time: 12:10:52 Pat Name: JAIR PARR Department: [facility] ED Patient ID: [id number] Room: Gender: F Lift Manager: gp : 1970 Requested By: EMERGENCY EMERGENCY Order Number: [id number] Reading MD: Measurements Intervals [place] Rate: 87 P: 31 WI: 198 QRS: 123 QRSD: 103 T: -44 QT: 350 QTc: 421 Interpretive Statements Sinus rhythm Left atrial enlargement Probable RVH w/ secondary repol abnormality Baseline wander in lead(s) V3 Please click the below link to view image of tracing.
[2025-05-28] MEDS: FUROSEMIDE 40 MG/4 ML VIAL IV ONE (14:36)
[2025-05-28 15:14] LABS: Urine Protein, UAD TRACE (Negative)
[2025-05-28] MEDS ORDERED: MORPHINE SULFATE INJ 2 MG/ml SYRG IV PRN (15:45)
[2025-05-28] MEDS ORDERED: HYDROcodone-ACET 5/325MG TAB PO PRN (15:45)
[2025-05-28] MEDS ORDERED: ACETAMINOPHEN 325 MG TAB PO PRN (15:45)
[2025-05-28] MEDS ORDERED: NITROGLYCERIN 0.4 MG SL TAB SL PRN (15:45)
--- NOTE | 2025-05-28 15:47 | DVHHPRES ---
History of Present Illness Resident Creating Document: JOSE ANTONIO PORRAS RESIDENT History of Present Illness 54-year-old female with past medical history of chronic HFrEF, ischemic cardiomyopathy s/p recent CAD stenting (unknown coronary anatomy), HTN and rheumatoid arthritis on biologic therapy (Etanercept), presents to the ED for evaluation of progressively worsening shortness of breath over the past month and leg edema. She reports associated symptoms including cough, congestion, and generalized malaise. She has a known history of reduced EF (38%) Patient has swelling on upper, lower extremities face and abdomen. Patient reports running out of her medication 1 month ago and has not been able to contact PCP for a assessment. She is followed by Dr. Soliman. Past Medical History Heart failure with reduced ejection fraction (EF 38%) Ischemic cardiomyopathy Hypertension Recent CAD s/p stenting (unknown location) Rheumatoid arthritis Review of Systems Review of Systems As mentioned in HPI Allergies: Coded Allergies: NO KNOWN ALLERGIES (Unverified , 05/18/24) Exam Vital Signs Vital Signs Date Time Temp Pulse Resp B/P (MAP) Pulse Ox O2 Delivery O2 Flow Rate FiO2 05/28/25 14:36 149/104 05/28/25 14:13 98.1 87 18 97 98.1 05/28/25 14:13 Room Air Exam General: Mild to moderate distress secondary to SOB, appears older than stated age. HEENT: Normocephalic, atraumatic, TM's normal, no sinus tenderness Neck: Supple, no JVD, no lymphadenopathy Cardiovascular: Regular rhythm, no murmurs, rubs, or gallops. Respiratory: Mild respiratory distress, diminished breath sounds at bases, no wheezing GI: Soft, nontender, no organomegaly Neuro: Alert and oriented x4, no focal deficits Extremities: edema 2+ Skin: No rashes or lesions Labs/Xrays Labs Test 05/28/25 13:32 05/28/25 12:52 Range/Units Urine Color Yellow Yellow Urine Clarity Clear Clear Urine pH 6.0 5.0-9.0 Urine Specific [place] 1.016 1.001-1.035 Urine Protein Trace H Negative Urine Ketones Negative Negative Urine Blood Negative Negative /uL Urine Nitrite Negative Negative Urine Bilirubin Negative Negative Urine Urobilinogen 2 H Negative mg/dL Urine Leukocyte Esterase Negative Negative /uL Urine RBC 2 0 - 4 /hpf Urine Microscopic WBC 2 0-5 /HPF Urine Squamous Epithelial Cells Few <5 /hpf Urine Bacteria None seen None Seen /hpf Urine Glucose Normal Normal mg/dL White Blood Count 6.9 4.4-10.8 10^3/uL Red Blood Count 4.66 4.0-5.20 10^6/uL Hemoglobin 14.9 12.2-16.2 g/dL Hematocrit 45.4 36.0-46.0 % Mean Corpuscular Volume 97.5 80.0-100.0 fL Mean Corpuscular Hemoglobin 32.1 H 28.0-32.0 pg Mean Corpuscular Hemoglobin Concent 32.9 32.0-36.0 g/dL Red Cell Distribution Width 14.1 11.8-14.3 % Platelet Count 194 140-450 10^3/uL Mean Platelet Volume 7.5 6.9-10.8 fL Neutrophils (%) (Auto) 70.4 37.0-80.0 % Lymphocytes (%) (Auto) 18.8 10.0-50.0 % Monocytes (%) (Auto) 8.2 0.0-12.0 % Eosinophils (%) (Auto) 1.8 0.0-7.0 % Basophils (%) (Auto) 0.8 0.0-2.0 % Neutrophils # (Auto) 4.8 1.6-8.6 10 ^3/uL Lymphocytes # (Auto) 1.3 0.4-5.4 10 ^3/uL Monocytes # (Auto) 0.6 0-1.3 10 ^3/uL Eosinophils # (Auto) 0.1 0-0.8 10 ^3/uL Basophils # (Auto) 0.1 0-0.2 10 ^3/uL Nucleated Red Blood Cells 0.0 % Sodium Level 142 136-145 mmol/L Potassium Level 4.2 3.5-5.1 mmol/L Chloride Level 109 H 98-107 mmol/L Carbon Dioxide Level 25 20-31 mmol/L Anion Gap 8 5-15 Blood Urea Nitrogen 9 9-23 mg/dL Creatinine 0.79 0.550-1.02 mg/dL Glomerular Filtration Rate Calc 88 >90 mL/min BUN/Creatinine Ratio 11.4 10.0-20.0 Serum Glucose 72 L 74-106 mg/dL Calcium Level 9.0 8.7-10.4 mg/dL Troponin I High Sensitivity 16 </=34 ng/L B-Type Natriuretic Peptide 1063.95 0-100 pg/mL SEPSIS Sepsis Screen Date sepsis recognized/suspect: May 28, 2025 Time Sepsis recognized/suspect: 1204 Recent Procedure: No On Antibiotic Therapy: No Respiratory Rate >20: No Heart Rate >90: No Temp<36 C (96.8 F) or >38.3 C: No SBP <90 or MAP <65 mmHG: No New Acute Mental Status Change: No Is the patient on CPAP, BIPAP,: No Physician Orders Chest Portable (05/28/25 12:38) Admit (05/28/25 15:40) Code Status (05/28/25 15:40) Sodium Chloride Lock (Saline Lock Ns) (05/28/25 22:00) Hydrocodone-Acet 5/325mg Tab (Maurice 5/32 (05/28/25 15:45) Complete Blood Count (05/29/25 04:00) Comprehensive Metabolic Panel (05/29/25 04:00) Cardiac Diet-2gna,Lofat,Lochol (05/28/25 Dinner) Acetaminophen Tablet (Tylenol Tablet) (05/28/25 15:45) Nitroglycerin Sublingual (Ntrostat Subli (05/28/25 15:45) Morphine Sulfate Injection (05/28/25 15:45) Oxygen By Nasal Cannula (05/28/25 15:40) Stat Ekg For Chest Pain (05/28/25 15:40) Notify Md Of Changes From Base (05/28/25 15:40) Mold Presser For 24 Hours (05/28/25 15:40) Emergency Dysrhythmia Protocol (05/28/25 15:40) Rhythm Strips Once Every Shift (05/28/25 15:40) Aspirin Enteric Coated Tablet (Ecotrin E (05/29/25 10:00) Clopidogrel Bisulfate (Plavix) (05/29/25 10:00) Losartan Tablet (Cozaar Tablet) (05/29/25 10:00) (Nf) Carvedilol (05/28/25 22:00) Furosemide Injection (Lasix Injection) (05/28/25 22:00) Ceftriaxone Ivpb Rocephin (05/28/25 15:45) Azithromycin 500mg/ 250ml (Zithromax 50 (05/28/25 15:45) Vital Signs Date Time Temp Pulse Resp B/P (MAP) Pulse Ox O2 Delivery O2 Flow Rate FiO2 05/28/25 14:36 149/104 05/28/25 14:13 98.1 87 18 149/104 (119) 97 98.1 05/28/25 14:13 87 18 97 Room Air 05/28/25 12:50 87 05/28/25 12:10 87 05/28/25 12:03 97.4 90 18 169/115 95 97.4 Laboratory Tests Test 05/28/25 12:52 White Blood Count 6.9 10^3/uL (4.4-10.8) Medications Medications Dose Ordered Sig/Hunter Route Start Time Stop Time Status Last Admin Dose Admin Furosemide 40 mg ONCE ONCE IV 05/28/25 12:45 05/28/25 12:46 DC 05/28/25 14:36 40 MG Assessment/Plan Assessment/Plan #Acute exacerbation of on chronic HFrEF #Ischemic cardiomyopathy # CAD sp stent # possible Gram-positive/Gram-negative bacterial pneumonia # community-acquired pneumonia #Hypertensive heart disease with systolic dysfunction #Rheumatoid arthritis on biologic treatment - Furosemide IV 40 mg b.i.d. - Cardiac diet - Aspirin - Clopidogrel - Ceftriaxone IV 1 gm daily - Azithromycin IV 500 mg daily - Carvedilol 6.25 mg - Cardiology consult Dr Soliman Goal of care discussed with patient for more than 30 minutes: Full code Case discussed with Dr Sutherland Plan discussed with: Patient My Orders Orders - JOSE ANTONIO PRORAS RESIDENT Procedure Category Date Status Time Admit ADMIT 05/28/25 Transmitted 15:40 Code Status CODE 05/28/25 Transmitted 15:40 Sodium Chloride Lock PHA 05/28/25 Transmitted (Saline Lock Ns) 22:00 Hydrocodone-Acet PHA 05/28/25 Transmitted 5/325mg Tab (Maurice 15:45 Complete Blood Count LAB 05/29/25 Verified 04:00 Comprehensive LAB 05/29/25 Verified Metabolic Panel 04:00 Cardiac DIET 05/28/25 Transmitted Diet-2gna,Lofat,Lochol Dinner Acetaminophen Tablet PHA 05/28/25 Transmitted (Tylenol Tablet) 15:45 Nitroglycerin PHA 05/28/25 Transmitted Sublingual (Ntrostat 15:45 Morphine Sulfate PHA 05/28/25 Transmitted Injection 15:45 Oxygen By Nasal RT 05/28/25 Transmitted Cannula 15:40 Stat Ekg For Chest [facility] 05/28/25 Transmitted Pain 15:40 Notify Md Of Changes [facility] 05/28/25 Transmitted From Base 15:40 Mold Presser For [facility] 05/28/25 Transmitted 24 Hours 15:40 Emergency Dysrhythmia [facility] 05/28/25 Transmitted Protocol 15:40 Rhythm Strips Once [facility] 05/28/25 Transmitted Every Shift 15:40 Aspirin Enteric PHA 05/29/25 Verified Coated Tablet 10:00 Clopidogrel Bisulfate [facility] 05/29/25 Verified (Plavix) 10:00 Losartan Tablet [facility] 05/29/25 Verified (Cozaar Tablet) 10:00 (Nf) Carvedilol [facility] 05/28/25 Verified 22:00 Furosemide Injection [facility] 05/28/25 Verified (Lasix Injection) 22:00 Ceftriaxone Ivpb [facility] 05/28/25 Verified Rocephin 15:45 Azithromycin 500mg/ [facility] 05/28/25 Verified 250ml (Zithromax 50 15:45 Date of Service: May 28, 2025 Billing Provider: ZULEIMA SUTHERLAND MD Common Visit Codes: [id number] INP/OBS CARE (HIGH) Secondary Visit Codes: 01690-[id number] CARE PLAN 30 MINUTES JOSE ANTONIO PORRAS RESIDENT May 28, 2025 15:47
[2025-05-28 16:32] VITALS: PULSE 110; RESP 20; TEMP 98; O2SAT 95
[2025-05-28] MEDS: CARVEDILOL 3.125 MG TAB PO SCH (16:32)
[2025-05-28] MEDS: AZITHROMYCIN 500MG/ 250ML 250 ML IV SCH (16:33)
[2025-05-28] MEDS: FUROSEMIDE 40 MG/4 ML VIAL IV SCH (16:34)
[2025-05-28 17:45] VITALS: RESP 15
[2025-05-28] MEDS: LORazepam 2MG/ML-1ML VIAL IV ONE (17:49)
[2025-05-28] MEDS: ETOMIDATE (2MG/ML) 20ML VIAL IV ONE ×2 (17:55→18:36)
[2025-05-28] MEDS: ROCURONIUM 10MG/ML 10ML VIAL IV ONE ×2 (17:55→17:57)
[2025-05-28] MEDS: MIDAZOLAM DRIP 100 mg/100mL NS 100 ML IV SCH (18:00)
[2025-05-28] MEDS: EPINEPHrine HCL 250 ML IV SCH (18:11)
[2025-05-28] MEDS: DOBUTamine 1000MCG/ML 250 ML IV SCH (18:19)
[2025-05-28 18:23] VITALS: PULSE 117
[2025-05-28 18:27] LABS: Amphetamine Screen, Urine Neg (NEGATIVE)
[2025-05-28] MEDS: NOREPINEPHRINE 8 MG/250ML KIT 250 ML IV SCH (18:30)
[2025-05-28] MEDS: LORazepam 2MG/ML-1ML VIAL ONE (18:34)
[2025-05-28 18:37] LABS: Barbiturate Scree,Urine Neg (NEGATIVE); Benzodiazephine Screen, Urine Neg (NEGATIVE); Cannabinoid Screen, Urine Neg (NEGATIVE); Cocaine Screen, Urine Neg (NEGATIVE); Opiate Scree,Urine Neg (NEGATIVE); Phencyclidine Screen, Urine Neg (NEGATIVE)
[2025-05-28] MEDS: EPINEPHrine HCL 250 ML IV ONE (18:37)
[2025-05-28] MEDS: DOBUTamine 1000MCG/ML 250 ML IV ONE (18:37)
[2025-05-28] MEDS: EPINEPHrine HCL 1 MG/10 ML SYRG ONE (18:40)
[2025-05-28 18:41] VITALS: BP 0/0
[2025-05-28] MEDS: NOREPINEPHRINE 8 MG/250ML KIT 250 ML IV ONE (18:41)
--- NOTE | 2025-05-28 20:07 | RESUS ---
LEIGH JAZMÍN ASSESSSMENT History of Events History of Events: PATIENT WAS IN LOBBY ADMITTED BUT WAS SITTING OUTSIDE ON BENCH WITH DAUGHTER. PATIENT WAS FOUND SLUMPED OVER AND FOAMING AT MOUTH WITH POSSIBLE REPORTED SEIZURE LIKE ACTIVITY. PATIENT WAS TAKEN TO ER BED 7 AND WAS INTUBATED. LEIGH NOYOLA WAS CALLED AT 1800 AFTER INTUBATION. Initial Information Date: May 28, 2025 Time: 18:00 Location of Arrest: ER Arrest Witnessed: Yes CPR started initial time: 18:00 CPR started by whom: Hospital Staff Last seen well: 1742 Type of arrest: Cardiac, Adult, Witnessed Spontaneous Respirations: No Pulse Present: No Monitoring: ECG, Pulse Oximetry Airway Ventilation Breathing at Onset: Assisted Oxygen Delivery Method: Ambu-Bag Artificial Ventilation: Bag/Endo tube Intubation Time: 17:56 Intubation Size: 8.0 cuffed Intubated by: DR RYDER PRIOR TO [facility] NOYOLA Intubation Attempts: 1 Intubated orally: Yes Tube secured at: 22 Cricoid pressure done: Yes CO2 indicator used: Yes Confirmation: Auscultation, Exhaled CO2 Circulation Circulation #1: Time: 18:00 Pulse Rate (adult): 0 Circulation Comment: PEA Circulation #2: Time: 18:02 Circulation Comment: PEA Circulation #3: Time: 18:04 Circulation Comment: ROSC Circulation #4: Time: 18:06 Circulation Comment: [place] Circulation #5: Time: 18:08 Circulation Comment: PEA Circulation #6: Time: 18:10 Circulation Comment: ROSC Circulation #7: Time: 18:12 Circulation Comment: LEIGH NOYOLA Circulation #8: Time: 18:14 Circulation Comment: ROSC Circulation #9: Time: 18:16 Circulation Comment: PEA Circulation #10: Time: 18:18 Circulation Comment: ROSC Circulation #11: Time: 18:29 Circulation Comment: [place], TIME OF CALLED BY DR RYDER Defibrillation Defbrillation : Time Defibrillator Applied: 18:01 Medications & Response Medications and Responses #1: Medication Time: 18:00 ADULT Medications Given ADULT: Epinephrine 1 mg Route of Administration: IV Medications and Responses #2: Medication Time: 18:01 ADULT Medications Given ADULT: Sodium Bacarbinate 50 meq Route of Administration: IV Medications and Responses #3: Medication Time: 18:03 ADULT Medications Given ADULT: Sodium Bacarbinate 50 meq Route of Administration: IV Medications and Responses #4: Medication Time: 18:04 ADULT Medications Given ADULT: Epinephrine 1 mg, Calcium Chloride 10 mL Route of Administration: IV Medications and Responses #5: Medication Time: 18:05 ADULT Medications Given ADULT: Sodium Bacarbinate 50 meq Route of Administration: IV Medications and Responses #6: Medication Time: 18:06 ADULT Medications Given ADULT: Epinephrine 1 mg Route of Administration: IV Medications and Responses #7: Medication Time: 18:08 ADULT Medications Given ADULT: Epinephrine 1 mg Route of Administration: IV Medication Comment: EPI DRIP Medications and Responses #8: Medication Time: 18:11 Medication Comment: EPINEPHRINE DRIP STARTED PER DR RYDER Medications and Responses #9: Medication Time: 18:12 ADULT Medications Given ADULT: Epinephrine 1 mg Route of Administration: IV Medications and Responses #10: Medication Time: 18:14 ADULT Medications Given ADULT: Epinephrine 1 mg Route of Administration: IV Medications and Responses #11: Medication Time: 18:17 ADULT Medications Given ADULT: Epinephrine 1 mg Route of Administration: IV Nurses Notes [place] Coma Scale Eye Opening: None (1) [place] Coma Scale Verbal: None (1) [place] Coma Scale Motor: None (1) Pupil Reaction: Non Reactive Nurses Notes - Comment: DOBUTAMINE DRIP STARTED AFTER 1818. DAUGHTER AT BEDSIDE - SPOKE WITH DAUGHTER. Time Code Ended Time Code Ended: 18:29 Post Arrest Status: Outcome of code: Unsuccessful Patient pronounced by: DR RYDER Time patient pronounced: 18:29 Family notified: Yes Code Team Present: PATRICIA SANCHEZ RN, PAULA Rico RN, AVTAR Rodriguez RN, ESTEBAN Servin RN, ANETA FORREST, ESTELLA RODAS, TATA RODAS, BRAYDON Hong RN, BRADFORD RUBY. Esteban Sen May 28, 2025 20:07
[2025-05-28] MEDS ORDERED: SODIUM CHLOR 0.9% PF (SALINE LOCK) 10ML VIAL/SYR IV SCH (22:00)
[2025-05-29] MEDS ORDERED: ASPirin-EC 81 mg tab PO SCH (10:00)
[2025-05-29] MEDS ORDERED: CLOPIDOGREL BISULFATE 75 MG TAB PO SCH (10:00)
[2025-05-29] MEDS ORDERED: LOSARTAN POTASSIUM 25 MG TAB PO SCH (10:00)
== END 2025-05-29 18:29 | DRG 137 ==
LOC: ER 12:03 → OVERFLOW 15:46
PROVIDERS: ADMIT Internal Medicine; ATTEND Internal Medicine
PROC: 06HY33Z Insertion of Infusion Device into Lower Vein, Percutaneous Approach (ICD-10-PCS; principal; 2025-05-28)
PROC: 0BH17EZ Insertion of Endotracheal Airway into Trachea, Via Natural or Artificial Opening (ICD-10-PCS; 2025-05-28)
PROC: 5A12012 Performance of Cardiac Output, Single, Manual (ICD-10-PCS; 2025-05-28)
PROC: 5A2204Z Restoration of Cardiac Rhythm, Single (ICD-10-PCS; 2025-05-28)
PROC: 5A1935Z Respiratory Ventilation, Less than 24 Consecutive Hours (ICD-10-PCS; 2025-05-28)
DX: J15.69 Pneumonia due to other Gram-negative bacteria (principal); I50.23 Acute on chronic systolic (congestive) heart failure; I11.0 Hypertensive heart disease with heart failure; J15.9 Unspecified bacterial pneumonia; J44.0 Chronic obstructive pulmonary disease with (acute) lower respiratory infection; I25.5 Ischemic cardiomyopathy; I25.10 Atherosclerotic heart disease of native coronary artery without angina pectoris; M06.9 Rheumatoid arthritis, unspecified; Z95.5 Presence of coronary angioplasty implant and graft
CPT/HCPCS: 31500; 36415; 36556; 71045; 80048; 80307; 81001; 82962; 83880; 84484; 85025; 92950; 93005; 94002; 96374; 99291; 99292; G0378; J0169